=== PATIENT | male | born 1945 | race Caucasian/White ===

== ENCOUNTER 2016-12-16 19:23 | Emergency (ER) | payer MEDICARE ==
[2016-12-16 19:34] VITALS: BP 139/92; PULSE 84; RESP 18; TEMP 98.5
--- NOTE | 2016-12-16 20:17 | ED ---
Wound/Laceration HPI - General Chief Complaint: Wound/Laceration Stated Complaint: fall,head injury Time Seen by Provider: 12/16/16 19:31 Source: patient, RN notes reviewed Mode of arrival: ambulatory Limitations: no limitations - History of Present Illness Initial Comments: Patient is a 71-year-old male presents to the emergency room for evaluation fall injury. Patient states he tripped over a step and fell head first into the door. Patient states he sustained a laceration on the top of his head. Patient denies loss of consciousness. Patient denies neck pain, nausea, changes in vision. Patient denies numbness or tingling in extremities. Patient states he also landed on his left knee. Patient states he has an abrasion over his knee along with pain every time he bends his left knee. Patient denies taking blood thinners. Patient states he is up-to-date on his tetanus vaccine. Patient denies any other injuries during incident. - Related Data Allergies Allergy/AdvReac Type Severity Reaction Status Date / Time tape Allergy Rash/Hives Uncoded 12/16/16 19:34 Review of Systems ROS Statement: Those systems with pertinent positive or pertinent negative responses have been documented in the HPI. ROS Other: All systems not noted in ROS Statement are negative. Past Medical History Past Medical History: Diabetes Mellitus, Thyroid Disorder Additional Past Medical History / Comment(s): sleep apnea, back pain History of Any Multi-Drug Resistant Organisms: None Reported Past Surgical History: Appendectomy Additional Past Surgical History / Comment(s): thyroidectomy Past Psychological History: No Psychological Hx Reported Smoking Status: Never smoker Past Alcohol Use History: None Reported Past Drug Use History: None Reported General Exam - General Exam Comments Initial Comments: Sitting in exam room, no acute distress. Limitations: no limitations General appearance: alert, in no apparent distress Expanded Head exam: Present: laceration (2 inch lac over mid parietal/frontal scalp ), hematoma (beneath laceration ) Eye exam: Present: normal appearance, PERRL, EOMI Pupils: Present: normal accommodation ENT exam: Present: normal exam Neck exam: Present: normal inspection, full ROM. Absent: tenderness, lymphadenopathy Respiratory exam: Present: normal lung sounds bilaterally. Absent: respiratory distress Cardiovascular Exam: Present: regular rate, normal rhythm, normal heart sounds Left Upper Leg exam: Present: normal inspection Knee exam: Present: full ROM, tenderness (Lateral knee joint), abrasion ( anterior patella ). Absent: normal inspection Lower Leg exam: Present: normal inspection Ankle exam: Present: normal inspection Foot/Toe exam: Present: normal inspection Neurovascular tendon exam: Absent: pulse deficit (2+ dorsal pedal and posterior tibial pulses), abnormal cap refill (Capillary refill less than 2 seconds) Back exam: Present: normal inspection Neurological exam: Present: alert, oriented X3, CN II-XII intact Expanded Patient oriented to: Present: person, place, time Speech: Present: fluid speech Cranial nerves: EOM's Intact: Normal, Facial Sensation: Normal Sensory exam: Upper Extremity Light Touch: Normal, Lower Extremity Light Touch: Normal Motor strength exam: RUE: 5, LUE: 5, RLE: 5, LLE: 5 Eye Response: (4) open spontaneously Motor Response: (6) obeys commands Verbal Response: (5) oriented Psychiatric exam: Present: normal affect, normal mood Skin exam: Present: warm, dry. Absent: rash Course Vital Signs 12/16/16 19:29 Temperature 98.5 F Pulse Rate 84 Respiratory 18 Rate Blood Pressure 139/92 O2 Sat by Pulse 97 Oximetry Procedures - Laceration Laceration #1 Consent Obtained: verbal consent Indication: laceration Site: scalp Size (cm): 5 Description: linear Depth: simple, single layer Anesthetic Used: lidocaine 1% Anesthesia Technique: local infiltration Amount (mls): 4 Pre-repair: wound explored Type of Sutures: other (jeff) Number of Sutures: 4 Patient Tolerated Procedure: well, no complications Medical Decision Making - Medical Decision Making Patient is a 71-year-old male presents to the emergency room for evaluation of fall injury. Scalp laceration repaired with jeff. Brain CT shows no acute findings. Left knee x-ray shows no acute findings. Advised patient to follow- up with his primary care provider for reevaluation. Patient states he understands everything that was discussed with him. Patient has no neuro deficits. Case discussed with Dr. Thakkar. Return parameters discussed. - Radiology Data Radiology results: report reviewed, image reviewed Disposition Clinical Impression: Fall, Scalp laceration, Abrasion of left knee Disposition: HOME SELF-CARE Condition: Good Instructions: Laceration (ED), Abrasion (ED), Staple Care (ED), Fall Prevention for Older Adults (ED) Additional Instructions: Keep staple area clean and dry. Please return in 12-14 days for staple removal. Take Tylenol or Motrin as needed for pain. Keep left knee clean and dry. Wash with warm water and soap. Apply triple antibiotic ointment and a bandage over abrasion area. Please follow up with primary care provider in 24- 48 hours for reevaluation. If any new symptom arises or symptoms worsen, return to ER as soon as possible. Referrals: Talat Baum MD [Primary Care Provider] - 1-2 days Time of Disposition: 21:19
--- NOTE | 2016-12-16 21:18 | CT ---
EXAMINATION TYPE: CT brain wo con DATE OF EXAM: 12/16/2016 8:51 PM COMPARISON: NONE HISTORY: Fall today. Injury to top of head. CT DLP: 1257.00 mGycm Automated exposure control for dose reduction was used. FINDINGS: There is cerebral cortical atrophy. There is no mass effect nor midline shift. There is no sign of in tracranial hemorrhage. Calvarium is intact. There is some mucosal thickening in the maxillary sinuses . IMPRESSION: Cerebral atrophy. Maxillary sinusitis. No acute intracranial abnormality.
[2016-12-16] MEDS ORDERED: IBUPROFEN 600 MG TAB PO STA (21:19)
--- NOTE | 2016-12-16 21:20 | XR ---
EXAMINATION TYPE: XR knee complete LT DATE OF EXAM: 12/16/2016 8:57 PM COMPARISON: NONE HISTORY: Knee pain TECHNIQUE: 3 views FINDINGS: I see no fracture nor dislocation. Joint spaces are fairly normal. There is no sign of knee joint effusion. IMPRESSION: Negative left knee exam.
== END 2016-12-16 21:50 | disposition home or self-care (01) ==
LOC: EC 19:23
DX: S01.01XA Laceration without foreign body of scalp, initial encounter (principal); S80.212A Abrasion, left knee, initial encounter; Z91.048 Other nonmedicinal substance allergy status; W01.0XXA Fall on same level from slipping, tripping and stumbling without subsequent striking against object, initial encounter; Y92.098 Other place in other non-institutional residence as the place of occurrence of the external cause
CPT/HCPCS: 12002; 70450; 99283

== ENCOUNTER → 2017-04-23 | Outpatient (CLI) | payer MEDICARE ==
--- NOTE | 2017-04-23 12:54 | CONS ---
DATE OF CONSULTATION: 04/23/2017 CONSULTATION/NEW PATIENT EVALUATION A 71-year-old gentleman had been evaluated in the sleep center for obstructive sleep apnea. HISTORY OF PRESENT ILLNESS/SLEEP-WAKE EVALUATION: SLEEP SCHEDULE: Patient's sleep schedule from around 12 to 1:30 a.m. until 9 a.m. Patient is a retired. FALLING ASLEEP: No problem with falling asleep. No TV in bedroom. DURING SLEEP: He usually sleeps on the side position. He snores, has episodes of stopped breathing during the sleep. He had been diagnosed with obstructive sleep apnea more than 30 years ago. Last sleep study done about 10 years ago. The patient was treated with CPAP. Now his CPAP has some problems. [place] Sleepiness Scale increased to 10. PAST MEDICAL HISTORY: Positive for hypertension, hypothyroidism secondary to thyroidectomy, diabetes mellitus. PAST SURGICAL HISTORY: Appendectomy, tonsillectomy, thyroidectomy done for possible CA, but then CA was not found. MEDICATIONS: ( ) 10 mg 2 times a day, lisinopril, levothyroxine, metformin. SOCIAL HISTORY: Patient quit smoking in 1977. Alcohol Consumption: None. REVIEW OF SYSTEMS: Sometimes awakenings from sleep, sleepiness during the day. No fevers. No double vision. No recent chest pain. No shortness of breath. No abdominal pain. No bleeding episodes. No blood in urine. No seizure episodes. FAMILY HISTORY: Hypertension, arthritis, sinus headaches, snoring, diabetes, thyroid problems. PHYSICAL EXAMINATION: During his physical exam, a 71-year-old gentleman without distress. VITAL SIGNS: BP 116/64, HR 90, RR 16, height 5 feet 9 inches, weight 232.0, BMI 34.2. Neck 18 inches in circumference. Temperature 97.2. Oxygen saturation at room air 95%. HEENT: PERRLA, EOMI. Evaluation of oropharynx extremely low position of soft palate. Slight restriction of nasal breathing. NECK: Supple. No JVD. Thyroid is not palpable. LUNGS: Clear to percussion and to auscultation. Good air exchange. No wheezing or rhonchi. HEART: S1, S2 regular. No murmurs, gallops or rubs. ABDOMEN: Obese. EXTREMITIES: No clubbing or cyanosis. 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 Cranial nerves 2 to 7 intact. There is no fasciculation or atrophy noted. No focal deficits observed. IMPRESSION: 1. Obstructive sleep apnea-hypopnea syndrome. 2. Obesity. 3. Hypertension. 4. Status post thyroidectomy. 5. Hypothyroidism on levothyroxine replacement. 6. Diabetes mellitus. 7. Status post appendectomy. 8. Status post tonsillectomy. PLAN: 1. Polysomnography for evaluation of patient's breathing during sleep. 2. CPAP/BiPAP titration if sleep study confirms obstructive sleep apnea-hypopnea syndrome. 3. Preferable position during sleep on the side. 4. No driving if patient feels any sleepiness. Patient is aware of civil and criminal liability for unsafe driving. 5. I will see patient for follow-up visit to explain results of the testing and following plan. Thank you very much for referring this patient for consultation. Sincerely, Sanjay Kirkland MD, PhD, FAASM. Diplomat of [place] [employer], Sleep Medicine Board by [place] [employer] [place] [employer] Road Consultant [facility] [place]
== END ==
LOC: SLEEP 10:59
PROVIDERS: ATTEND Internal Medicine
DX: G47.33 Obstructive sleep apnea (adult) (pediatric) (principal); E66.9 Obesity, unspecified; I10 Essential (primary) hypertension; E11.9 Type 2 diabetes mellitus without complications; Z90.89 Acquired absence of other organs; Z79.899 Other long term (current) drug therapy
CPT/HCPCS: 99211

== ENCOUNTER → 2017-07-23 | Outpatient (CLI) | payer MEDICARE ==
--- NOTE | 2017-07-23 19:50 | PN ---
PROGRESS NOTE DATE OF SERVICE: 07/23/2017 This patient is a 71-year-old gentleman who has been followed in the sleep center for treatment of obstructive sleep apnea-hypopnea syndrome. Recently the patient had a polysomnogram and CPAP titration, and I discussed results of the sleep studies with the patient and his family in detail. At present he is on treatment with CPAP with a pressure of 10 cm of water. I checked the CPAP unit. Patient demonstrated 100% compliance with treatment, 30 out of 30 nights for more than 4 hours; average 7.5 hours. Apnea-hypopnea index reading from the machine is 11.8 for the last month. The patient continues to have some symptoms of excessive daytime sleepiness. 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 [place] Sleepiness Scale today is 9. MEDICATIONS: 1. Lisinopril. 2. Levothyroxine. 3. Metformin. 4. Methylphenidate. PHYSICAL EXAM: Patient is in no distress. VITAL SIGNS: BP 111/65, HR 86, RR 16, weight 233, temperature 97.7, oxygen saturation at room air 95%. HEENT: PERRLA, EOMI. Evaluation of oropharynx showed tongue protrudes midline; extremely low position of soft palate. NECK: Supple. No JVD. Thyroid is not palpable. LUNGS: Clear to percussion and to auscultation. Good air exchange. No wheezing or rhonchi. HEART: S1, S2 with some irregularities. Slight systolic murmur. ABDOMEN: Obese. EXTREMITIES: No clubbing or cyanosis. MANAGEMENT SERVICES TECHNICIAN: Awake, alert and oriented x3. Cranial nerves 2 to 7 intact. There is no fasciculation or atrophy noted. No focal deficits observed. IMPRESSION: 1. Severe obstructive sleep apnea-hypopnea syndrome; apnea-hypopnea index 82.2 with oxygen desaturation to 83.8%. The patient demonstrated 100% compliance with treatment, benefitting from treatment, but still with mild abnormalities of respiration while using the machine. 2. Obesity. 3. Hypertension. 4. Status post thyroidectomy. 5. Hypothyroidism, on levothyroxine. 6. Diabetes mellitus. 7. Status post appendectomy. 8. Status post tonsillectomy. PLAN: 1. I adjusted the CPAP unit to the automatic range of pressure between 7 and 13 cm of water. 2. Patient should continue to use CPAP equipment every night for the whole night. 3. Losing weight. 4. Sleep hygiene with regular time in bed for at least 8 hours. 5. I will see patient for follow-up visit in 2 months to check his response to changing of the pressure in the machine. 6. If patient continues to have sleepiness in the future after his respirations are under full control, we will consider proceeding with multiple sleep latency test for objective evaluation of his alertness during the day and to check for possibility of narcolepsy. Thank you very much for allowing me to participate in the management of your patient. Sincerely, Sanjay Kirkland MD, PhD, FAASM Diplomat of [place] [employer] [place] [employer] Steam Boiler Fireman [facility] [place] MMODL / JOSE: [id number] /
== END | disposition home or self-care (01) ==
LOC: SLEEP 13:11
PROVIDERS: ATTEND Internal Medicine
DX: G47.33 Obstructive sleep apnea (adult) (pediatric) (principal); E66.9 Obesity, unspecified; I10 Essential (primary) hypertension; E03.9 Hypothyroidism, unspecified; E11.9 Type 2 diabetes mellitus without complications; Z98.890 Other specified postprocedural states; Z79.899 Other long term (current) drug therapy

== ENCOUNTER 2017-09-21 21:32 | Emergency (ER) | payer MEDICARE ==
--- NOTE | 2017-09-21 21:43 | ED ---
General Adult HPI - General Stated complaint: Dizzy/Vomiting Time Seen by Provider: 09/21/17 21:42 Source: RN notes reviewed, old records reviewed - History of Present Illness Initial comments: this is a 71-year-old male to the ER for evaluation of dizziness. Lightheadedness near syncopal event. Patient was going through a period of sitting to standing and became very lightheaded dizzy with the room spinning around. At this point patient states symptoms are much improved. No nausea no vomiting. No prior history of similar issues. Patient does have diabetes, otherwise no history of stroke. No chest pain or shortness of breath. We'll currently is not spitting a patient was able to ambulate without difficulty - Related Data Home Medications Medication Instructions Recorded Confirmed Cholecalciferol [Vitamin D3] 2,000 unit PO DAILY 09/21/17 09/21/17 Levothyroxine Sodium [Synthroid] 150 mcg PO DAILY 09/21/17 09/21/17 Lisinopril [Zestril] 5 mg PO DAILY 09/21/17 09/21/17 Multivitamins, Thera [Multivitamin 1 tab PO DAILY 09/21/17 09/21/17 (formulary)] metFORMIN HCL [Glucophage] 500 mg PO QID 09/21/17 09/21/17 Allergies Allergy/AdvReac Type Severity Reaction Status Date / Time tape Allergy Rash/Hives Uncoded 12/16/16 19:34 Review of Systems ROS Statement: Those systems with pertinent positive or pertinent negative responses have been documented in the HPI. ROS Other: All systems not noted in ROS Statement are negative. Past Medical History Past Medical History: Diabetes Mellitus, Thyroid Disorder Additional Past Medical History / Comment(s): sleep apnea, back pain History of Any Multi-Drug Resistant Organisms: None Reported Past Surgical History: Appendectomy Additional Past Surgical History / Comment(s): thyroidectomy Past Psychological History: No Psychological Hx Reported Smoking Status: Never smoker Past Alcohol Use History: None Reported Past Drug Use History: None Reported General Exam - General Exam Comments Initial Comments: nystagmus to the right, heel benton and finger-nose are negative General appearance: alert, in no apparent distress Head exam: Present: atraumatic, normocephalic, normal inspection Eye exam: Present: normal appearance, PERRL, EOMI. Absent: scleral icterus, conjunctival injection, periorbital swelling ENT exam: Present: normal exam, mucous membranes moist Neck exam: Present: normal inspection. Absent: tenderness, meningismus, lymphadenopathy Respiratory exam: Present: normal lung sounds bilaterally. Absent: respiratory distress, wheezes, rales, rhonchi, stridor Cardiovascular Exam: Present: regular rate, normal rhythm, normal heart sounds. Absent: systolic murmur, diastolic murmur, rubs, gallop, clicks GI/Abdominal exam: Present: soft, normal bowel sounds. Absent: distended, tenderness, guarding, rebound, rigid Extremities exam: Present: normal inspection, full ROM, normal capillary refill. Absent: tenderness, pedal edema, joint swelling, calf tenderness Back exam: Present: normal inspection Neurological exam: Present: alert, oriented X3, CN II-XII intact Psychiatric exam: Present: normal affect, normal mood Skin exam: Present: warm, dry, intact, normal color. Absent: rash Course Vital Signs 09/21/17 09/21/17 09/22/17 22:05 23:55 00:50 Temperature 97.3 F L 97.8 F Pulse Rate 67 83 75 Respiratory 18 18 18 Rate Blood Pressure 146/78 137/82 146/65 O2 Sat by Pulse 99 99 100 Oximetry - Reevaluation(s) Reevaluation #1: Patient is able to ambulate without difficulty, no dizziness no ataxia EKG Findings - EKG Comments: EKG Findings:: EKG shows normal sinus rhythm rate of 67, VA 154, QRS 86, QTc 409 Medical Decision Making - Medical Decision Making 71 male the ER for evaluation of dizziness. Patient episodic event of dizziness with room spinning as he had a change of position earlier today. He is asymptomatic at this point no headache no chest pain or shortness of breath no abdominal pain. History of CVA. Patient's able to ambulate without ataxia can be discharged - Lab Data Result diagrams: 09/21/17 22:40 09/21/17 22:40 Lab Results 09/21/17 09/21/17 09/21/17 Range/Units 22:40 22:40 22:40 WBC 15.5 H (3.8-10.6) k/uL RBC 5.39 (4.30-5.90) m/uL Hgb 16.0 (13.0-17.5) gm/dL Hct 49.2 (39.0-53.0) % MCV 91.3 (80.0-100.0) fL MCH 29.7 (25.0-35.0) pg MCHC 32.6 (31.0-37.0) g/dL RDW 13.3 (11.5-15.5) % Plt Count 242 (150-450) k/uL Neutrophils % 83 % Lymphocytes % 10 % Monocytes % 3 % Eosinophils % 2 % Basophils % 1 % Neutrophils # 12.8 H (1.3-7.7) k/uL Lymphocytes # 1.6 (1.0-4.8) k/uL Monocytes # 0.5 (0-1.0) k/uL Eosinophils # 0.3 (0-0.7) k/uL Basophils # 0.1 (0-0.2) k/uL PT (9.0-12.0) sec INR (<1.2) APTT (22.0-30.0) sec Sodium 141 (137-145) mmol/L Potassium 4.7 (3.5-5.1) mmol/L Chloride 106 (98-107) mmol/L Carbon Dioxide 22 (22-30) mmol/L Anion Gap 13 mmol/L BUN 20 (9-20) mg/dL Creatinine 1.10 (0.66-1.25) mg/dL Est GFR (MDRD) Af Amer >60 (>60 ml/min/1.73 sqM) Est GFR (MDRD) Non-Af >60 (>60 ml/min/1.73 sqM) Glucose 165 H (74-99) mg/dL Calcium 9.7 (8.4-10.2) mg/dL Phosphorus 3.4 (2.5-4.5) mg/dL Magnesium 2.0 (1.6-2.3) mg/dL Total Bilirubin 0.9 (0.2-1.3) mg/dL AST 27 (17-59) U/L ALT 45 (21-72) U/L Alkaline Phosphatase 103 (38-126) U/L Total Creatine Kinase 148 (55-170) U/L CK-MB (CK-2) 1.9 (0.0-2.4) ng/mL CK-MB (CK-2) Rel Index 1.3 Troponin I <0.012 (0.000-0.034) ng/mL Total Protein 7.5 (6.3-8.2) g/dL Albumin 4.1 (3.5-5.0) g/dL 09/21/17 Range/Units 22:40 WBC (3.8-10.6) k/uL RBC (4.30-5.90) m/uL Hgb (13.0-17.5) gm/dL Hct (39.0-53.0) % MCV (80.0-100.0) fL MCH (25.0-35.0) pg MCHC (31.0-37.0) g/dL RDW (11.5-15.5) % Plt Count (150-450) k/uL Neutrophils % % Lymphocytes % % Monocytes % % Eosinophils % % Basophils % % Neutrophils # (1.3-7.7) k/uL Lymphocytes # (1.0-4.8) k/uL Monocytes # (0-1.0) k/uL Eosinophils # (0-0.7) k/uL Basophils # (0-0.2) k/uL PT 11.0 (9.0-12.0) sec INR 1.1 (<1.2) APTT 19.6 L (22.0-30.0) sec Sodium (137-145) mmol/L Potassium (3.5-5.1) mmol/L Chloride (98-107) mmol/L Carbon Dioxide (22-30) mmol/L Anion Gap mmol/L BUN (9-20) mg/dL Creatinine (0.66-1.25) mg/dL Est GFR (MDRD) Af Amer (>60 ml/min/1.73 sqM) Est GFR (MDRD) Non-Af (>60 ml/min/1.73 sqM) Glucose (74-99) mg/dL Calcium (8.4-10.2) mg/dL Phosphorus (2.5-4.5) mg/dL Magnesium (1.6-2.3) mg/dL Total Bilirubin (0.2-1.3) mg/dL AST (17-59) U/L ALT (21-72) U/L Alkaline Phosphatase (38-126) U/L Total Creatine Kinase (55-170) U/L CK-MB (CK-2) (0.0-2.4) ng/mL CK-MB (CK-2) Rel Index Troponin I (0.000-0.034) ng/mL Total Protein (6.3-8.2) g/dL Albumin (3.5-5.0) g/dL - Radiology Data Radiology results: report reviewed (CT brain is negative for acute disease), image reviewed Disposition Clinical Impression: Benign paroxysmal positional vertigo Disposition: HOME SELF-CARE Condition: Good Instructions: Vertigo (ED), Benign Paroxysmal Positional Vertigo (ED) Referrals: Talat Baum MD [Primary Care Provider] - 1-2 days
[2017-09-21 22:09] VITALS: RESP 18
[2017-09-21] MEDS ORDERED: ONDANSETRON 4 MG/2 ML VIAL IVP STA (22:17)
[2017-09-21] MEDS ORDERED: SODIUM CHLORIDE 0.9% 1,000 ML IV STA (22:17)
[2017-09-21 22:52] LABS: Basophils # (A) 0.1 k/uL (0-0.2); Basophils % (A) 1 %; CH 30.4; CHCM 33.4; Eosinophils # (A) 0.3 k/uL (0-0.7); Eosinophils % (A) 2 %; HCT 49.2 % (39.0-53.0); HDW 2.47; Luc % (Auto) 1; Lymphocytes # (A) 1.6 k/uL (1.0-4.8); Lymphocytes % (A) 10 %; MCH 29.7 pg (25.0-35.0); MCHC 32.6 g/dL (31.0-37.0); MCV 91.3 fL (80.0-100.0); Mean Platelet Volume 7.6; Monocytes # (A) 0.5 k/uL (0-1.0); Monocytes % (A) 3 %; Neutrophils # (A) 12.8 k/uL (1.3-7.7); Neutrophils % (A) 83 %; RBC 5.39 m/uL (4.30-5.90); RDW 13.3 % (11.5-15.5); WBC 15.5 k/uL (3.8-10.6); WBC (Perox) 14.33
[2017-09-21 23:04] LABS: ALT 45 U/L (21-72); AST 27 U/L (17-59); Alkaline Phosphatase 103 U/L (38-126); Anion Gap 13 mmol/L; Blood Urea Nitrogen 20 mg/dL (9-20); Calcium 9.7 mg/dL (8.4-10.2); Carbon Dioxide 22 mmol/L (22-30); Chloride 106 mmol/L (98-107); Glucose 165 mg/dL (74-99); Non-African American GFR(MDRD) >60 (>60 ml/min/1.73 sqM); Phosphorus 3.4 mg/dL (2.5-4.5); Potassium 4.7 mmol/L (3.5-5.1); Sodium 141 mmol/L (137-145); Total Bilirubin 0.9 mg/dL (0.2-1.3); Total Protein 7.5 g/dL (6.3-8.2)
[2017-09-21 23:06] LABS: INR 1.1 (<1.2)
[2017-09-21 23:10] LABS: Partial Thromboplastin Time 19.6 sec (22.0-30.0)
[2017-09-21 23:12] LABS: Creatine Kinase 148 U/L (55-170)
[2017-09-21 23:25] LABS: Creatine Kinase MB 1.9 ng/mL (0.0-2.4); Troponin I <0.012 ng/mL (0.000-0.034)
--- NOTE | 2017-09-21 23:43 | CT ---
EXAMINATION TYPE: CT brain wo con DATE OF EXAM: 09/21/2017 COMPARISON: 12/16/2016 HISTORY: dizziness nausea CT DLP: 1016.90 mGycm Automated exposure control for dose reduction was used. FINDINGS: Multiple axial sections were obtained of the brain without contrast. THERE IS CEREBRAL CORTICAL ATROPHY. THERE IS NO MASS EFFECT NOR MIDLINE SHIFT. THERE IS NO SIGN OF IN TRACRANIAL HEMORRHAGE. THE CALVARIUM IS INTACT. CONCLUSION: CEREBRAL ATROPHY. NO ACUTE INTRACRANIAL ABNORMALITY. NO CHANGE COMPARED TO OLD EXAM.
[2017-09-22 00:51] VITALS: BP 146/65; PULSE 75
[2017-09-22 00:52] VITALS: TEMP 97.8
== END 2017-09-21 23:55 | disposition home or self-care (01) ==
LOC: EC 21:32
DX: H81.10 Benign paroxysmal vertigo, unspecified ear (principal); E11.9 Type 2 diabetes mellitus without complications; E07.9 Disorder of thyroid, unspecified; Z79.84 Long term (current) use of oral hypoglycemic drugs; Z79.899 Other long term (current) drug therapy; Z91.048 Other nonmedicinal substance allergy status
CPT/HCPCS: 36415; 93005; 80053; 82550; 82553; 83735; 84100; 84484; 85025; 85610; 85730; 70450; 99285; 96374; 96361; J2405

== ENCOUNTER → 2017-09-24 | Outpatient (CLI) | payer MEDICARE ==
--- NOTE | 2017-09-24 15:04 | PN ---
PROGRESS NOTE DATE OF SERVICE: 09/24/2017 71-year-old gentleman has been followed in Sleep Center for treatment of obstructive sleep apnea-hypopnea syndrome. During the previous visit on 07/23/2017 CPAP pressure was 10 cm of water. At that pressure apnea-hypopnea index was slightly increased to 11.8. I just at the CPAP unit to the range of pressure 7 up to 13 cm of water. Today patient return back and according to him, he sleeps better with the machine after pressure was changed. I checked his CPAP unit. Average pressure is 12.8 cm of water. Apnea-hypopnea index is only 2.6, which is totally perfect. [place] Sleepiness Scale today is 7. MEDICATIONS: Lisinopril, levothyroxine, metformin. PHYSICAL EXAM: Patient in no distress. BP 132/72, HR 84, RR 16, height 5 feet 9 inches, weight 231, BMI 34.1, temperature 97.9, oxygen saturation on room air 96%. HEENT: PERRLA, EOMI, evaluation of oropharynx showed extremely low position of soft palate. NECK: Supple, no JVD. Thyroid is not palpable. LUNGS: Clear to percussion and to auscultation. Good air exchange. No wheezing or rhonchi. HEART: S1, S2 regular. No murmurs, gallops, or rubs. ABDOMEN: Obese. Soft and nontender. Bowel sounds are present. No organomegaly appreciated. EXTREMITIES: No clubbing or cyanosis. 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 Cranial nerves 2 to 7 intact. There is no fasciculation or atrophy. noted. No focal deficits observed. IMPRESSION: 1. Obstructive sleep apnea-hypopnea syndrome on full control with CPAP. The patient demonstrated 100% compliance with treatment benefitting from treatment. 2. Obesity. 3. Hypertension. 4. Hypothyroidism. 5. Diabetes mellitus. 6. Status post appendectomy. 7. Status post tonsillectomy. PLAN: 1. Continue treatment with CPAP every night for the whole night. 2. Losing weight. 3. No driving if feeling sleepiness. 4. Followup visit in about 1 year or earlier if patient has any problems. Sanjay Kirkland MD, PhD, FAASM Diplomat of [place] [employer] [place] [employer] Harmonic Analyst [facility] [place] MMODL / IJN: [id number] /
== END ==
LOC: SLEEP 13:40
PROVIDERS: ATTEND Internal Medicine
DX: G47.33 Obstructive sleep apnea (adult) (pediatric) (principal); E66.9 Obesity, unspecified; E03.9 Hypothyroidism, unspecified; E11.9 Type 2 diabetes mellitus without complications; I10 Essential (primary) hypertension; Z90.89 Acquired absence of other organs; Z79.899 Other long term (current) drug therapy; Z79.84 Long term (current) use of oral hypoglycemic drugs

== ENCOUNTER 2018-06-07 06:53 | Day surgery (SDC) | payer MEDICARE ==
[2018-06-02 12:44] VITALS: BMI 33.1
[~2018-06-07 06:53] MED LIST: LACTATED RINGERS 1,000 ML IV ONE; LACTATED RINGERS 1,000 ML IV SCH; LIDOCAINE 1% 20 ML VIAL (10MG/ML) FOR IV START INTRADERMA PRN
[2018-06-07 07:18] VITALS: RESP 16; TEMP 98.1
[2018-06-07 07:40] LABS: Glucose,Whole Blood 125 mg/dL (75-99)
[2018-06-07] MEDS ORDERED: PROPOFOL 10 MG/ML 20 ML VIAL IV ONE (07:56)
[2018-06-07] MEDS ORDERED: fentaNYL (PF) 50 MCG/ML 2 ML AMP ONE (07:56)
[2018-06-07] MEDS ORDERED: MIDAZOLAM 2 MG/2 ML VIAL ONE (07:56)
--- NOTE | 2018-06-07 07:59 | P.GSHP ---
History of Present Illness H&P Date: 06/07/18 Chief Complaint: Blood in stool Cyst 72-year-old male who presents today for colonoscopy. Patient's had issues with rectal bleeding. He presents today for colonoscopy. Patient states he sees blood when he wipes himself. Past Medical History Past Medical History: Asthma, Diabetes Mellitus, Hypertension, Sleep Apnea/CPAP/ BIPAP, Thyroid Disorder Additional Past Medical History / Comment(s): USES CPAP. DDD. HX VERTIGO. POS COLOGARD TEST. History of Any Multi-Drug Resistant Organisms: None Reported Past Surgical History: Appendectomy Additional Past Surgical History / Comment(s): PARTIAL Thyroidectomy. CIRCUMCISION. Past Anesthesia/Blood Transfusion Reactions: No Reported Reaction, Unable to Obtain Additional Past Anesthesia/Blood Transfusion Reaction / Comment(s): ADOPTED, NO KNOWN FAM HX. Smoking Status: Former smoker - Past Family History Mother Family Medical History: Unable to Obtain Medications and Allergies Home Medications Medication Instructions Recorded Confirmed Type Cholecalciferol [Vitamin D3] 2,000 unit PO DAILY 09/21/17 06/07/18 History Levothyroxine Sodium [Synthroid] 150 mcg PO DAILY 09/21/17 06/07/18 History Lisinopril [Zestril] 5 mg PO DAILY 09/21/17 06/07/18 History metFORMIN HCL [Glucophage] 500 mg PO QID 09/21/17 06/07/18 History Ibuprofen [Motrin] 600 mg PO Q8HR PRN 06/02/18 06/07/18 History Methylphenidate HCl [Ritalin] 10 mg PO BID 06/02/18 06/07/18 History sitaGLIPtin PHOSPHATE [Januvia] 100 mg PO DAILY 06/02/18 06/07/18 History Allergies Allergy/AdvReac Type Severity Reaction Status Date / Time adhesive tape Allergy Rash/Hives Verified 06/07/18 07:22 Surgical - Exam Vital Signs Temp Pulse Resp BP Pulse Ox 98.1 F 74 16 102/65 95 06/07/18 07:17 06/07/18 07:17 06/07/18 07:17 06/07/18 07:17 06/07/18 07:17 - General well developed, no distress - Eyes PERRL - ENT normal pinna - Neck no masses - Respiratory normal expansion - Cardiovascular Rhythm: regular - Abdomen Abdomen: soft, non tender Results - Labs Abnormal Lab Results - Last 24 Hours (Table) 06/07/18 Range/Units 07:19 POC Glucose (mg/dL) 125 H (75-99) mg/dL Assessment and Plan Assessment: GI bleed. We'll perform colonoscopy.
--- NOTE | 2018-06-07 08:12 | P.OP ---
Date of Procedure: 06/07/18 Preoperative Diagnosis: GI bleed Postoperative Diagnosis: Internal hemorrhoids Diverticulosis Rectal polyp Procedure(s) Performed: Colonoscopy Anesthesia: MAC Surgeon: Brandon Gonzáles Pathology: other (Rectal polyp) Condition: stable Disposition: PACU Description of Procedure: The patient's placed on the endoscopy table in the lateral position. He received IV sedation. Digital rectal exam was performed which revealed mild internal hemorrhoids. Prostate was symmetric without nodules. The flexible colonoscope was then placed patient anus passed throughout the entire colon. The ileocecal valve was visualized. The cecum, ascending and transverse colon appeared normal. In the descending and sigmoid colon there was moderate diverticular changes. The scope was then brought back the rectum and a polyp was seen in this is removed with the snare. The scope was then withdrawn from the patient.
[2018-06-07 08:50] VITALS: BP 123/67; PULSE 71
[2018-06-07 09:21] LABS: Glucose,Whole Blood 120 mg/dL (75-99)
== END 2018-06-07 09:15 | disposition home or self-care (01) ==
LOC: ORWHC2ENDO 06:53
PROVIDERS: ATTEND Surgery
DX: K62.1 Rectal polyp (principal); K57.30 Diverticulosis of large intestine without perforation or abscess without bleeding; K62.5 Hemorrhage of anus and rectum; G47.33 Obstructive sleep apnea (adult) (pediatric); K64.8 Other hemorrhoids; E89.0 Postprocedural hypothyroidism; J45.909 Unspecified asthma, uncomplicated; I10 Essential (primary) hypertension; E11.9 Type 2 diabetes mellitus without complications; Z99.89 Dependence on other enabling machines and devices; Z87.891 Personal history of nicotine dependence; Z79.84 Long term (current) use of oral hypoglycemic drugs; Z79.899 Other long term (current) drug therapy; Z91.048 Other nonmedicinal substance allergy status; G47.419 Narcolepsy without cataplexy
CPT/HCPCS: 88305; 45385; J2250; J3010; J2704

== ENCOUNTER → 2018-08-26 | Outpatient (CLI) | payer MEDICARE ==
--- NOTE | 2018-08-26 15:15 | SFUN ---
SLEEP CENTER FOLLOW UP NOTE DATE OF SERVICE: 08/26/2018 A 72-year-old gentleman who has been followed in Sleep Center for treatment of obstructive sleep apnea-hypopnea syndrome. Patient continued to use his CPAP equipment every night, but sometimes has snoring with the machine and continued to have symptoms of excessive daytime sleepiness. He also started to go to bed later and sleep longer hours and get up from bed also late. His sleep schedule from around 1-114 at midnight 1 and gets out of bed. He sleeps up to me in 2 or 2 up to 2 cm. [place] Sleepiness Scale significantly increased to 15. Previously, patient was evaluated at [facility] many years ago and has been told about possible borderline results for narcolepsy. Presently, he is on treatment with methylplenidate 2 times a day. He takes the first tablet when he wakes up around 2 pm but second tablet he has taken around 8 pm. MEDICATIONS: Lisinopril, levothyroxine, metformin. PHYSICAL EXAM: Patient in no distress. BP 94/54, HR 89, RR 16, height, 5 feo8-1/2 inches, weight 223.6, body mass index 33.4, temperature 97.9 oxygen saturation room air 95% oropharynx extremely low position of soft palate. ABDOMEN: Obese under physical exam normal just full my template. I checked the patient. The CPAP unit. Usage is 100% of the time more than 4 hours. Average usage is 10 hours. Pressure in the range of 7-13 cm of water. 95% till pressure is 12.4. Leak is 47 L/minute. Apnea-hypopnea index 7.5. IMPRESSION: 1. Obstructive sleep apnea-hypopnea syndrome. The patient demonstrated 100% compliance with treatment, benefitting from treatment, but recently developed snoring while using his CPAP machine and has symptoms of significant excessive daytime sleepiness. [place] Sleepiness Scale increased to 15 in the borderline results for narcolepsy in another institution according to patient in the past. 2. Sleep delay. Patient goes to bed at midnight and gets out of bed afternoon, sleep many hours. 3. Obesity. 4. Hypertension. 5. Hypothyroidism. 6. Diabetes mellitus. 7. Status post appendectomy. 8. Status post tonsillectomy. PLAN: 1. Polysomnogram at night with the pressure of 13 cm of water. If necessary, pressure will be adjusted up and we will also check mask fitting. If necessary, he will be fitted with a different mask. 2. Follow with multiple sleep latency test for objective evaluation of patient symptoms of excessive daytime sleepiness to rule out narcolepsy. 3. Patient will stop taking his second tablet of methylphenidate at 8 p.m. and maximal sunlight exposure in the morning after awakenings with a goal to move sleep schedule earlier. He will start also taking melatonin at 8:00 pm. 4. Losing weight. 5. No driving if feeling any sleepiness. Thank you very much for allowing me to participate in the management of your patient. Sincerely, Sanjay Kirkland MD, PhD, FAASM Diplomat of [employer] Pantry Goods Worker of [facility] [place] MMROSA M / KENYETTAN: [id number] /
== END | disposition home or self-care (01) ==
LOC: SLEEP 13:42
PROVIDERS: ATTEND Internal Medicine
DX: G47.33 Obstructive sleep apnea (adult) (pediatric) (principal); E66.9 Obesity, unspecified; I10 Essential (primary) hypertension; E03.9 Hypothyroidism, unspecified; E11.9 Type 2 diabetes mellitus without complications; Z68.33 Body mass index [BMI] 33.0-33.9, adult; Z90.89 Acquired absence of other organs; Z99.89 Dependence on other enabling machines and devices; Z79.899 Other long term (current) drug therapy; Z79.84 Long term (current) use of oral hypoglycemic drugs

== ENCOUNTER → 2018-11-11 | Outpatient (CLI) | payer MEDICARE ==
--- NOTE | 2018-11-11 16:00 | PN ---
PROGRESS NOTE DATE OF SERVICE: 11/11/2018 This patient is a 73-year-old gentleman who has been followed in Sleep Center for treatment of obstructive sleep apnea-hypopnea syndrome and significant excessive daytime sleepiness. Recently we provided a nighttime test, when patient slept on CPAP and then we followed with multiple sleep latency test on the following day. Test showed that on CPAP patient's respiration was under full control, and on the following day during the test, which included 5 naps, mean sleep latency was pathologically short at 3.9 minutes, which indicates the possibility of narcolepsy because no sleep-onset REM periods were documented. I checked the patient's CPAP unit. CPAP pressure is in the range of 7 to 14. Average pressure is 13.3. Usage is 100% of the time for more than 4 hours. Average usage is 8.9 hours. Leak is 26 L/minute, which is borderline for a full-face mask, which patient is using. Apnea-hypopnea index is 4.1, which is normal. MEDICATIONS: 1. Lisinopril. 2. Levothyroxine. 3. Metformin. 4. Methylphenidate. During the multiple sleep latency test, the patient did not take his methylphenidate. PHYSICAL EXAMINATION: GENERAL: A pleasant patient in no distress. VITAL SIGNS: BP 113/63, HR 80, RR 16, weight 229, temperature 98.0, oxygen saturation at room air 96%. HEENT: PERRLA, EOMI. Evaluation of oropharynx showed tongue protrudes midline. Extremely low position of soft palate. NECK: Supple. No JVD. Thyroid is not palpable. LUNGS: Clear to percussion and to auscultation. Good air exchange. No wheezing or rhonchi. HEART: S1, S2 regular. No murmurs, gallops or rubs. ABDOMEN: Obese. EXTREMITIES: No clubbing or cyanosis. PROJECT LEADER: Awake, alert, and oriented X3. Cranial nerves 2 to 7 intact. There is no fasciculation or atrophy. noted. No focal deficits observed. IMPRESSION: 1. Obstructive sleep apnea-hypopnea syndrome. The patient demonstrated 100% compliance with treatment, benefitting from treatment. 2. 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 3. Obesity. 4. Hypertension. 5. Hypothyroidism. 6. Diabetes mellitus. 7. Status post appendectomy. 8. Status post tonsillectomy. PLAN: 1. Patient will continue to use CPAP equipment every night for the whole night with the same regimen. 2. Losing weight. 3. Patient should continue treatment with methylphenidate for documented significant excessive daytime sleepiness which may interfere with his ability to drive. 4. Precautions related to driving. No driving if feeling any sleepiness. 5. Sleep hygiene with regular time in bed for at least 8 hours. 6. Daytime naps permitted. Thank you very much for allowing me to participate in the management of your patient. Sincerely, Sanjay Kirkland MD, PhD, FAASM Diplomat of [employer] Resident Care Director of [facility] [place] MMODL / IJN: [id number] /
== END | disposition home or self-care (01) ==
LOC: SLEEP 13:59
PROVIDERS: ATTEND Internal Medicine
DX: G47.33 Obstructive sleep apnea (adult) (pediatric) (principal); G47.419 Narcolepsy without cataplexy; E66.9 Obesity, unspecified; I10 Essential (primary) hypertension; E03.9 Hypothyroidism, unspecified; E11.9 Type 2 diabetes mellitus without complications; Z90.89 Acquired absence of other organs; Z99.89 Dependence on other enabling machines and devices; Z79.899 Other long term (current) drug therapy; Z79.84 Long term (current) use of oral hypoglycemic drugs

== ENCOUNTER → 2019-02-25 | Outpatient (CLI) | payer MEDICARE ==
--- NOTE | 2019-02-25 13:40 | MR ---
EXAMINATION TYPE: MR Prostate wo/w con DATE OF EXAM: 02/25/2019 COMPARISON: Prior outside ultrasound IMAGE QUALITY: Satisfactory. INDICATION: Elevated PSA PSA: 7.8 ng/ml Recent Biopsy and Date: 07/07/2018 Pathology Report (If Applicable): Benign prostatic parenchymal TECHNIQUE: Examination was performed using a 3T MRI without an endorectal coil. Multiparametric imaging was perf ormed with T2 mutliplanar sequences, axial diffusion weighted imaging and dynamic contrast enhanced i maging, utilizing 11 mL intravenous Gadavist gadolinium contrast. FINDINGS: There is no clinically significant cancer identified. PROSTATE VOLUME: 3.9 x 5.2 x 5.9 cm Vol= 63 cc PREDICTED PSA DENSITY: 7.56 ng/ml/cc Site 1: Assessment Category: 2 Size: 10 mm x 8 mm Location(s):right posterior lateral mid gland There are numerous well-circumscribed heterogenous central zone nodules compatible moderate degree be nign prostatic hyperplasia. Throughout the peripheral zone there are hazy wedge-shaped and linear areas of T2 hypointensity. Nash diamond there is no discrete signal abnormality on DWI and ADC map. IMPRESSION: A focus of clinically significant cancer is not identified. Highest Assessment Category: 2-clinically significant cancer is unlikely to be present Moderate findings of benign prostatic hyperplasia. There is a hypoechoic lesion of the right posterior lateral mid gland seen only on T2-weighted images that does not have corresponding suspicious features on DWI nor ADC map. However this could correspo nd to the findings seen on the prior outside ultrasound report and if there is concern ultrasound mazin ded targeted biopsy could be performed. False negative rates for MRI range from 5-20% depending on risk profile. Assessment Categories: 1 ? Very low (clinically significant cancer is highly unlikely to be present) 2 ? Low (clinically significant cancer is unlikely to be present) 3 ? Intermediate (the presence of clinically significant cancer is equivocal) 4 ? High (clinically significant cancer is likely to be present) 5 ? Very high (clinically significant cancer is highly likely to be present) Locations: PZ = peripheral zone; TZ = transition zone CZ=central zone; AFS = anterior fibromuscular stroma a=anterior half (i.e. PZa=anterior half of peripheral zone); pm= posterior medial (i.e PZpm) pl = postero-lateral (i.e. PZpl); p = posterior half (i.e. TZp) ; a = anterior half (i.e TZa or P Za) Other: N=no or no; E= equivocal; Y=yes EPE = extraprostatic extension NVB = neurovascular bundle NA = not applicable/not available
== END | disposition home or self-care (01) ==
LOC: RADMRIMAIN 11:12
PROVIDERS: ATTEND Urology
DX: N40.0 Benign prostatic hyperplasia without lower urinary tract symptoms (principal)
CPT/HCPCS: 72197; A9585

== ENCOUNTER → 2019-04-21 | Outpatient (CLI) | payer MEDICARE ==
--- NOTE | 2019-04-21 18:12 | PN ---
PROGRESS NOTE DATE OF SERVICE: 04/21/2019 73-year-old gentleman has been followed in Sleep Center for treatment of obstructive sleep apnea hypopnea syndrome and narcolepsy. Patient continued to use his CPAP equipment every night for the whole night, but still sometimes feels sleepy during the day. He is on treatment with methylphenidate 2 times a day, 5-10 mg. I checked his CPAP unit, range of CPAP pressure 7-14 cm of water. Average pressure 13.5 cm of water. Apnea-hypopnea index significantly increased during the last month. Apnea-hypopnea index 16.2, and 6 months ago index was only 4.1, leak is borderline 8 L/minute, but patient increased his weight on about 8 pounds since last visit. Usage is every night with average usage 8.9 hours, which is great compliance. MEDICATIONS: Lisinopril, levothyroxine, metformin, methylphenidate. PHYSICAL EXAM: Patient in no distress. BP 129/54, HR 76, RR 16, weight 237 pounds. Height 5 feet 8 inches, body mass index 36, O2 saturation at room air 96%. Oropharynx extremely low soft palate, Mallampati 4. Neck Supple, no JVD. Thyroid is not palpable. LUNGS Clear to percussion and to auscultation. Good air exchange. No wheezing or rhonchi. HEART S1, S2 regular. No murmurs, gallops, or rubs. ABDOMEN: Obese. Soft and nontender. Bowel sounds are present. No organomegaly appreciated. EXTREMITIES No clubbing or cyanosis. SURFACE SUPERVISOR Awake, alert, and oriented X3. Cranial nerves 2 to 7 intact. There is no fasciculation or atrophy. noted. No focal deficits observed. IMPRESSION: 1. Obstructive sleep apnea-hypopnea syndrome. Patient demonstrated 100% compliance with treatment benefitting from treatment but increasing apnea-hypopnea index comparing with the previous visit. 2. Narcolepsy confirmed by multiple sleep latency test. 3. Obesity. Patient increased weight on 8 pounds. 4. Hypertension. 5. Hypothyroidism. 6. Diabetes mellitus. 7. Status post appendectomy. 8. Status post tonsillectomy. PLAN: 1. Patient will continue to use CPAP equipment every night for the whole night. I will increase range of pressure to 17 cm of water. 2. Losing weight. 3. Sleep hygiene with regular time in bed for at least 8 hours. 4. No driving if feeling sleepiness. 5. Will maintain all necessary prescriptions for CPAP supplies including mask, tube, filters. Thank you very much for allowing me to participate in the management of your patient. Sincerely, Sanjay Kirkland MD, PhD, FAASM Diplomat of [employer] Climatologist of [facility] [place] MMODL / IJN: [id number] /
== END | disposition home or self-care (01) ==
LOC: SLEEP 16:47
PROVIDERS: ATTEND Internal Medicine
DX: G47.33 Obstructive sleep apnea (adult) (pediatric) (principal); G47.419 Narcolepsy without cataplexy; E66.9 Obesity, unspecified; I10 Essential (primary) hypertension; E03.9 Hypothyroidism, unspecified; E11.9 Type 2 diabetes mellitus without complications; Z99.89 Dependence on other enabling machines and devices; Z68.36 Body mass index [BMI] 36.0-36.9, adult; Z90.89 Acquired absence of other organs; Z79.899 Other long term (current) drug therapy

== ENCOUNTER → 2019-08-18 | Outpatient (CLI) | payer MEDICARE ==
--- NOTE | 2019-08-18 18:23 | PN ---
PROGRESS NOTE DATE OF SERVICE: 08/18/2019 73-year-old gentleman has been followed in Sleep Center for treatment of obstructive sleep apnea-hypopnea syndrome. Previous visit was about 3 months ago. At that time, reading from the machine showed apnea-hypopnea index 16.2, and I increased his range of the pressure in the machine from 14 cm of water up to 17 cm of water with a minimal pressure of 7. The patient is able to use machine without significant problems. [place] Sleepiness Scale today is 11. He still feels sleepy sometimes during the day. According to his family. I checked CPAP unit. Usage is 30 out of 30 nights for more than 4 hours. His average usage 8.5 hours per night, which showed great compliance. Range of the pressure 7-17 with an average pressure 16.6. Leak is 36 L/minute. Apnea-hypopnea index is 8.7. Total apnea index 5.2, and central apnea index 0.9 and other events probably relate to hypopneas. MEDICATIONS: Lisinopril, levothyroxine, metformin, Methylphenidate. PHYSICAL EXAM: Patient in no distress. BP 107/61, HR 76, RR 16, height 5 feet 7 inches, weight 238, which is 1 pound more than during previous visit. Body mass index 36.3, temperature 97.5, oxygen saturation at room air 95%. Oropharynx: Extremely low soft palate, Mallampati 4. Neck Supple, no JVD. Thyroid is not palpable. LUNGS Clear to percussion and to auscultation. Good air exchange. No wheezing or rhonchi. HEART S1, S2 regular. No murmurs, gallops, or rubs. ABDOMEN: Obese. Soft and nontender. Bowel sounds are present. No organomegaly appreciated. EXTREMITIES No clubbing or cyanosis. YARN SIZER Awake, alert, and oriented X3. Cranial nerves 2 to 7 intact. There is no fasciculation or atrophy. noted. No focal deficits observed. IMPRESSION: 1. Obstructive sleep apnea-hypopnea syndrome. The patient demonstrated practically 100% compliance with treatment. Respiration improved after increasing pressure, but still slightly above normal two times better although again worse as the previous visit. 2. Narcolepsy confirmed by multiple sleep latency test. 3. Obesity. 4. Hypertension. 5. Hypothyroidism. 6. Diabetes mellitus. 7. Status post appendectomy. 8. Status post tonsillectomy. PLAN: 1. Patient will continue to use CPAP equipment every night. I will increase range of her pressure up to 19 cm of water. 2. Losing weight. 3. Sleep hygiene with regular time in bed for at least 7-1/2 to 8 hours. 4. No driving if feeling sleepiness. 5. Patient will continue to take Methylphenidate 10 mg in the morning and 10 mg in the afternoon. 6. Precautions related to driving. No driving if feeling sleepiness. Thank you very much for allowing me to participate in management of your patient. Sincerely, Sanjay Kirkland MD, PhD, FAASM Diplomat of [employer] Glass Installer Technician of [facility] [place] MMODL / IJN: [id number] /
== END | disposition home or self-care (01) ==
LOC: SLEEP 15:50
PROVIDERS: ATTEND Internal Medicine
DX: G47.33 Obstructive sleep apnea (adult) (pediatric) (principal); G47.419 Narcolepsy without cataplexy; E66.9 Obesity, unspecified; I10 Essential (primary) hypertension; E03.9 Hypothyroidism, unspecified; E11.9 Type 2 diabetes mellitus without complications; Z68.36 Body mass index [BMI] 36.0-36.9, adult; Z90.49 Acquired absence of other specified parts of digestive tract; Z90.89 Acquired absence of other organs; Z99.89 Dependence on other enabling machines and devices; Z79.84 Long term (current) use of oral hypoglycemic drugs; Z79.899 Other long term (current) drug therapy

== ENCOUNTER → 2019-11-17 | Outpatient (CLI) | payer MEDICARE ==
--- NOTE | 2019-11-17 20:32 | PN ---
PROGRESS NOTE DATE OF SERVICE: 11/17/2019. 74-year-old gentleman who has been followed in Sleep Center for treatment of obstructive sleep apnea-hypopnea syndrome. Last time I show the patient in August of 2019. At that time, I increased the range of the pressure in his CPAP unit up to 19 cm of water. The patient is able to use CPAP equipment every night for the whole night. She does not have any problems with the pressure. [place] Sleepiness Scale today is 9. I checked his CPAP unit. Ramp is in automatic regimen. Setting of the pressure in the range between 7 and 19. Average pressure is 15.7 cm of water. Leak is 38 L/minute which is slightly high, but patient is using full-face mask and for full-face mask I believe this would be acceptable. Usage is 30/30 nights and 29/30 nights more than 4 hours. Average usage 8.8 hours per night. Apnea-hypopnea index reading for the last month is 5.2, which is acceptable. MEDICATIONS: Lisinopril, levothyroxine, metformin, Methylphenidate. PHYSICAL EXAM: Patient in no distress. BP 113/72, HR 84, RR 16, height 5 feet 9 inches, weight 232.6 pounds, temperature 97.5, oxygen saturation at room air 96%. Oropharynx extremely low position of soft palate. Mallampati 4. NECK: Supple, no JVD. Thyroid is not palpable. LUNGS: Clear to percussion and to auscultation. Good air exchange. No wheezing or rhonchi. HEART: S1, S2 regular. No murmurs, gallops, or rubs. ABDOMEN: Slightly obese. Soft and nontender. Bowel sounds are present. No organomegaly appreciated. EXTREMITIES: No clubbing or cyanosis. MOBILE SECURITY SPECIALIST: Awake, alert, and oriented X3. Cranial nerves 2 to 7 intact. There is no fasciculation or atrophy. noted. No focal deficits observed. IMPRESSION: 1. Obstructive sleep apnea-hypopnea syndrome. Patient demonstrated great compliance with treatment benefitting from treatment. 2. Narcolepsy confirmed by multiple sleep latency test. 3. Obesity. 4. Hypertension. 5. Diabetes mellitus. 6. Hypothyroidism. 7. Status post appendectomy. 8. Status post tonsillectomy. PLAN: 1. Patient will continue treatment with CPAP with the same regimen of pressure with automatic ramp. 2. Watching and losing weight. 3. Sleep hygiene with regular time in bed for at least 7.5 to 8 hours. 4. Precautions related to driving. 5. No driving if feeling sleepiness. 6. Patient will continue to take Methylphenidate 10 mg in the morning and 10 mg in the afternoon. 7. I will maintain all necessary prescriptions for CPAP supplies including full-face mask, tube, filters. We will consider possibility to use chinstrap additionally. 8. Follow-up visit in 1 year or earlier if patient has any problems. Thank you very much for allowing me to participate in management of your patient. Sincerely, Sanjay Kirkland MD, PhD, FAASM Diplomat of [employer] of Internal Medicine Salesperson Women'S Dresses of [facility] [place] MMODL / KENYETTAN: [id number] /
== END | disposition home or self-care (01) ==
LOC: SLEEP 14:52
PROVIDERS: ATTEND Internal Medicine
DX: G47.33 Obstructive sleep apnea (adult) (pediatric) (principal); G47.419 Narcolepsy without cataplexy; I10 Essential (primary) hypertension; E66.9 Obesity, unspecified; E11.9 Type 2 diabetes mellitus without complications; E03.9 Hypothyroidism, unspecified; Z90.49 Acquired absence of other specified parts of digestive tract; Z90.89 Acquired absence of other organs; Z99.89 Dependence on other enabling machines and devices; Z79.84 Long term (current) use of oral hypoglycemic drugs; Z79.890 Hormone replacement therapy; Z79.899 Other long term (current) drug therapy

== ENCOUNTER 2021-06-30 21:03 | Emergency (ER) | payer MEDICARE ==
[2021-06-30 21:24] VITALS: RESP 20
[2021-06-30] MEDS ORDERED: KETOROLAC 15 MG/ML 1 ML VIAL IM STA (21:32)
[2021-06-30] MEDS ORDERED: KETOROLAC 15 MG/ML 1 ML VIAL IVP STA (21:48)
--- NOTE | 2021-06-30 22:18 | XR ---
EXAMINATION TYPE: XR knee complete bilateral DATE OF EXAM: 06/30/2021 COMPARISON: NONE HISTORY: Knee pain TECHNIQUE: 3 views each knee FINDINGS: I see no fracture nor dislocation. Joint spaces are fairly normal. There is no sign of knee joint effusion. There is vascular calcification. The patella appears intact. IMPRESSION: Negative bilateral knee exam. No fracture.
--- NOTE | 2021-06-30 22:22 | XR ---
EXAMINATION TYPE: XR lumbar spine 2 or 3V DATE OF EXAM: 06/30/2021 COMPARISON: NONE HISTORY: Pain TECHNIQUE: 3 views FINDINGS: Lumbar vertebra have normal alignment. There is some narrowing at L4-5 disc with spurring o f the endplates. Posterior elements are intact. There is no compression fracture. Sacroiliac joints a re intact. IMPRESSION: There are some spondylotic changes at L4-5. No fracture. IMPRESSION:
--- NOTE | 2021-06-30 22:35 | ED ---
Fall HPI - General Chief Complaint: Fall Stated Complaint: Fall Time Seen by Provider: 06/30/21 21:25 Source: patient, EMS, RN notes reviewed Mode of arrival: EMS - History of Present Illness Initial Comments: Patient is a 75-year-old male that presents to emergency department complaining of fall with injury. He notes he was trying to chasecontrolled with his granddaughter when he tripped landing on both knees. He notes that he did not hit his head or lose consciousness. He notes that he is having some lower back pain. He notes that he is able to have bowel movements and PE. He denied any saddle anesthesia weakness numbness tingling in his bilateral lower extremities. He was otherwise a well-appearing 75-year-old male no apparent distress or pain. He denied any chest pain shortness of breath headache nausea vomiting diarrhea constipation fever fatigue chills. - Related Data Home Medications Medication Instructions Recorded Confirmed Cholecalciferol [Vitamin D3] 2,000 unit PO DAILY 09/21/17 06/07/18 Levothyroxine Sodium [Synthroid] 150 mcg PO DAILY 09/21/17 06/07/18 lisinopriL [Zestril] 5 mg PO DAILY 09/21/17 06/07/18 metFORMIN HCL [Glucophage] 500 mg PO QID 09/21/17 06/07/18 Ibuprofen [Motrin] 600 mg PO Q8HR PRN 06/02/18 06/07/18 Methylphenidate HCl [Ritalin] 10 mg PO BID 06/02/18 06/07/18 sitaGLIPtin PHOSPHATE [Januvia] 100 mg PO DAILY 06/02/18 06/07/18 Allergies Allergy/AdvReac Type Severity Reaction Status Date / Time adhesive tape Allergy Rash/Hives Verified 06/07/18 07:22 Review of Systems ROS Statement: Those systems with pertinent positive or pertinent negative responses have been documented in the HPI. ROS Other: All systems not noted in ROS Statement are negative. Past Medical History Past Medical History: Asthma, Diabetes Mellitus, Hypertension, Sleep Apnea/CPAP/BIPAP, Thyroid Disorder Additional Past Medical History / Comment(s): USES CPAP. DDD. HX VERTIGO. POS COLOGARD TEST. History of Any Multi-Drug Resistant Organisms: None Reported Past Surgical History: Appendectomy Additional Past Surgical History / Comment(s): PARTIAL Thyroidectomy. CIRCUMCISION. Past Anesthesia/Blood Transfusion Reactions: No Reported Reaction, Unable to Obtain Additional Past Anesthesia/Blood Transfusion Reaction / Comment(s): ADOPTED, NO KNOWN FAM HX. Past Psychological History: No Psychological Hx Reported Smoking Status: Never smoker Past Alcohol Use History: None Reported Past Drug Use History: None Reported - Past Family History Mother Family Medical History: Unable to Obtain General Exam General appearance: alert, in no apparent distress Head exam: Present: atraumatic, normocephalic, normal inspection Eye exam: Present: normal appearance, PERRL, EOMI. Absent: scleral icterus, conjunctival injection, periorbital swelling Neck exam: Present: normal inspection Respiratory exam: Present: normal lung sounds bilaterally. Absent: respiratory distress, wheezes, rales, rhonchi, stridor Cardiovascular Exam: Present: regular rate, normal rhythm, normal heart sounds. Absent: systolic murmur, diastolic murmur, rubs, gallop, clicks Extremities exam: Present: normal inspection, full ROM, normal capillary refill, other (Large abrasion to the right knee, nonbleeding, nonsuturable. Small abrasion of left knee.). Absent: tenderness, pedal edema, joint swelling, calf tenderness Neurological exam: Present: alert, oriented X3 Psychiatric exam: Present: normal affect, normal mood Skin exam: Present: warm, dry, intact, normal color. 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 X-ray of the bilateral knees, lumbar spine, 15 mg Toradol ordered. X-ray imaging negative for any acute fractures dislocations. Case discussed with Dr. Anaya, patient discharge home with localized wound care and felt primary care. - Radiology Data Radiology results: report reviewed, image reviewed X-ray lumbar spine: There are some spondylitic changes at L4-L5. No fracture. X-ray of the bilateral knees: No acute fractures or dislocations. Disposition Clinical Impression: Fall, Abrasion of knee, bilateral, Back pain, Knee pain, bilateral Disposition: HOME SELF-CARE Condition: Stable Instructions (If sedation given, give patient instructions): Fall Prevention for Older Adults (ED) Additional Instructions: Please return to the Emergency Department if symptoms worsen or any other concerns. Keep knee is clean and dry. Take pain medication as needed. Is patient prescribed a controlled substance at d/c from ED?: No Referrals: Talat Baum MD [Primary Care Provider] - 1-2 days Time of Disposition: 22:35
[2021-06-30 23:10] VITALS: BP 118/72; PULSE 82; TEMP 98.1
== END 2021-06-30 23:10 | disposition home or self-care (01) ==
LOC: EC 21:03
DX: S80.211A Abrasion, right knee, initial encounter (principal); S80.212A Abrasion, left knee, initial encounter; M54.5 Low back pain; I10 Essential (primary) hypertension; E11.9 Type 2 diabetes mellitus without complications; E07.9 Disorder of thyroid, unspecified; J45.909 Unspecified asthma, uncomplicated; Z79.84 Long term (current) use of oral hypoglycemic drugs; Z91.09 Other allergy status, other than to drugs and biological substances; Z79.890 Hormone replacement therapy; Z79.899 Other long term (current) drug therapy; W01.0XXA Fall on same level from slipping, tripping and stumbling without subsequent striking against object, initial encounter; Y93.01 Activity, walking, marching and hiking; Y92.009 Unspecified place in unspecified non-institutional (private) residence as the place of occurrence of the external cause
CPT/HCPCS: 73562; 72100; 99284; 96374; J1885

== ENCOUNTER → 2023-02-06 | Outpatient (CLI) | payer MEDICARE ==
--- NOTE | 2023-02-08 13:44 | MR ---
EXAMINATION TYPE: MR Prostate wo/w con DATE OF EXAM: 02/06/2023 COMPARISON: Prior prostate MRI February 25, 2019 INDICATION: Prostate cancer. PSA: 21.40 ng/ml on January 05, 2023 increased from 20.0 on September 09, 2022 Recent Biopsy and Date: May 09, 2020 Pathology Report (If Applicable): Left lateral apex focal microscopic adenocarcinoma Reddy grade 3+ 3 = 6 involving 0.6 mm approximately 6% of tissue. TECHNIQUE: Examination was performed using a 3T MRI without an endorectal coil. Multiparametric imaging was perf ormed with T2 mutliplanar sequences, axial diffusion weighted imaging and dynamic contrast enhanced i maging, utilizing 10 mL intravenous Gadavist gadolinium contrast. FINDINGS: PROSTATE VOLUME: 5.4 cm SI x 4.6 cm AP x 5.8 cm LR Vol= 75.4 cc PSA DENSITY: 0.28 ng/ml/cc Prostate gland remains enlarged in size and measures larger versus prior study. The peripheral zone shows areas of indistinct hypointensity and T2 weighted images and some areas of slight diminished signal on ADC mapping without significant restricted diffusion. Central transitional zone demonstrates heterogeneity with new or larger area of T2 hypointensity chandana uring 1.9 x 1.2 cm right lateral apex axial image 16. No significant increased signal on diffusion-we ighted images. There is no area of concern posterior right base axial image 19 measuring 1.8 x 1.4 cm without increased signal on diffusion-weighted imaging. Prostate capsule is preserved. No new pelvic adenopathy. No groin hernia. Urinary bladder shows mild to moderate wall thickening and trabeculation on current study. Visualized osseous structures are int act. IMPRESSION: Enlarged prostate redemonstrated. Some areas of concern thought present with elevating PS A repeat sampling would be advised. Highest Assessment Category: 4 MRI Stage: T1c N0 M0 based on review of pelvic images. False negative rates for MRI range from 5-20% depending on risk profile. Assessment Categories: 1 ? Very low (clinically significant cancer is highly unlikely to be present) 2 ? Low (clinically significant cancer is unlikely to be present) 3 ? Intermediate (the presence of clinically significant cancer is equivocal) 4 ? High (clinically significant cancer is likely to be present) 5 ? Very high (clinically significant cancer is highly likely to be present)
== END | disposition home or self-care (01) ==
LOC: RADMRIMAIN 09:00
PROVIDERS: ATTEND Urology
DX: C61 Malignant neoplasm of prostate (principal)
CPT/HCPCS: 72197; A9585

== ENCOUNTER → 2023-04-21 | Outpatient (CLI) | payer MEDICARE ==
[2023-04-21 15:42] LABS: Calcium 9.5 mg/dL (8.7-10.3); Carbon Dioxide 24.6 mmol/L (21.6-31.8); Chloride 105 mmol/L (96-109); Glucose 125 mg/dL (70-110); Potassium 5.1 mmol/L (3.5-5.5); Sodium 141 mmol/L (135-145)
[2023-04-21 15:57] LABS: Basophils # (A) 0.11 X 10*3/uL (0.00-0.10); Basophils % (A) 1.3 %; Eosinophils # (A) 0.37 X 10*3/uL (0.04-0.35); Eosinophils % (A) 4.4 %; HCT 47.8 % (39.6-50.0); HGB 15.4 d/dL (12.0-15.0); Lymphocytes # (A) 2.58 X 10*3/uL (0.90-5.00); Lymphocytes % (A) 30.5 %; MCH 30.3 pg (27.0-32.0); MCHC 32.2 d/dL (32.0-37.0); MCV 93.9 FL (80.0-97.0); Mean Platelet Volume 10.8 FL (9.5-12.2); Monocytes # (A) 0.69 X 10*3/uL (0.20-1.00); Monocytes % (A) 8.2 %; NRBC Per 100 WBC 0 X 10*3/uL (0.00-0.01); Neutrophils # (A) 4.67 X 10*3/uL (1.80-7.70); Neutrophils % (A) 55.1 %; Platelet Count 246 X 10*3/uL (140-440); RBC 5.09 X 10*6/uL (4.40-5.60); RDW 14.6 % (11.5-14.5); WBC 8.46 X 10*3/uL (4.50-10.00)
[2023-04-21 20:41] LABS: Appearance,Urine Clear (Clear); Bilirubin,Urine Negative (Negative); Blood,Urine Negative (Negative); Color,Urine Yellow (Yellow); Ketones,Urine Negative (Negative); Nitrite,Urine Negative (Negative); PH, Urine 5.5; Urobilinogen,Urine 0.2 E.U./DL
== END | disposition home or self-care (01) ==
LOC: LABPAT 11:27
PROVIDERS: ATTEND Family Medicine
DX: Z01.812 Encounter for preprocedural laboratory examination (principal); C61 Malignant neoplasm of prostate; R31.29 Other microscopic hematuria
CPT/HCPCS: 36415; 80048; 81003; 85025; 87086

== ENCOUNTER 2023-04-28 14:28 | Day surgery (SDC) | payer MEDICARE ==
[2023-04-23 15:54] VITALS: BMI 33.1
--- NOTE | 2023-04-28 12:48 | P.HPIHPCON ---
History of Present Illness H&P Date: 04/28/23 Chief Complaint: Prostate cancer This is a 77-year-old male with history of [place] 6 prostate cancer diagnosed back in 2018. Has had 2 follow-up biopsies and 2021 which showed no evidence of progression but his PSA continued to rise underwent MRI of prostate which showed evidence of PIRAD 4 lesions. Discussed with him given this finding and persisting rising PSA recommend repeat sampling. Aware of the risk of bleeding infection and sepsis. Consent for Procedure: I have explained the operation/procedure to the patient, including the risks, benefits, side effects, alternative therapies (including not receiving the proposed treatment or service), the likelihood of the patient achieving his/her goals, and potential recuperation problems for the procedure/sedation/analgesia, as well as any blood products, if indicated. I also explained to the patient the risks, benefits and side effects of the alternatives, as well as the risks related to not receiving the proposed procedure, care, treatment, or services. Past Medical History Past Medical History: Asthma, Diabetes Mellitus, Hypertension, Sleep Apnea/CPAP/BIPAP, Thyroid Disorder Additional Past Medical History / Comment(s): USES CPAP. DDD. HX VERTIGO. BORDERLINE NARCOLEPSY. History of Any Multi-Drug Resistant Organisms: None Reported Past Surgical History: Appendectomy Additional Past Surgical History / Comment(s): PARTIAL Thyroidectomy. CIRCUMCISION. Past Anesthesia/Blood Transfusion Reactions: No Reported Reaction, Unable to Obtain Additional Past Anesthesia/Blood Transfusion Reaction / Comment(s): ADOPTED, NO KNOWN FAM HX. Past Psychological History: No Psychological Hx Reported Smoking Status: Former smoker Past Alcohol Use History: None Reported Additional Past Alcohol Use History / Comment(s): SMOKED 15 YEARS, UP TO 1 /2 PPD, QUIT 1977 Past Drug Use History: None Reported - Past Family History Mother Family Medical History: Unable to Obtain Medications and Allergies Home Medications Medication Instructions Recorded Confirmed Type Levothyroxine Sodium [Synthroid] 150 mcg PO DAILY 09/21/17 04/23/23 History lisinopriL [Zestril] 5 mg PO DAILY 09/21/17 04/23/23 History metFORMIN HCL [Glucophage] 1,000 mg PO BID 09/21/17 04/23/23 History Methylphenidate HCl [Ritalin] 10 mg PO BID 06/02/18 04/23/23 History Pioglitazone [Actos] 30 mg PO DAILY 04/23/23 04/23/23 History Allergies Allergy/AdvReac Type Severity Reaction Status Date / Time adhesive tape Allergy Rash/Hives Verified 04/23/23 15:47 Latex, Natural Rubber Allergy Rash/Hives Verified 04/23/23 15:47 Surgical - Exam - General no distress, no pain - Eyes normal ocular movement, no pale - Respiratory normal expansion, normal respiratory effort Assessment and Plan Assessment: OR for MRI fusion biopsy
[2023-04-28 16:12] VITALS: TEMP 97.6
[2023-04-28] MEDS: LACTATED RINGERS 1,000 ML IV SCH ×2 (16:15→16:17)
[2023-04-28] MEDS: GENTAMICIN 120 MG in SODIUM CHLORIDE 0.9% 100 ML IVPB PRN ×2 (16:15→16:17)
[2023-04-28 16:17] LABS: Glucose,Whole Blood 129 mg/dL (70-110)
[2023-04-28] MEDS ORDERED: PROPOFOL 10 MG/ML 20 ML VIAL IV ONE (16:39)
--- NOTE | 2023-04-28 17:00 | P.OP ---
Date of Procedure: 04/28/23 Preoperative Diagnosis: Prostate cancer Postoperative Diagnosis: same Procedure(s) Performed: MRI fusion prostate biopsy Implants: none Anesthesia: MAC Surgeon: Ricardo Cade Estimated Blood Loss (ml): 1 Pathology: other (Prostate biopsies) Condition: stable Disposition: PACU Indications for Procedure: This is a 77-year-old male with history of [place] 6 prostate cancer diagnosed back in 2018. Has had 2 follow-up biopsies 2019 and 2021 which showed no evidence of progression but his PSA continued to rise underwent MRI of prostate which showed evidence of PIRAD 4 lesions. Discussed with him given this finding and persisting rising PSA recommend repeat sampling. Aware of the risk of bleeding infection and sepsis. Description of Procedure: The patient was taken to the operating room and placed in the left lateral d ecubitus position. The [employer] transrectal ultrasound probe was placed intrarectally. It was then placed within the stand of the [employer] MRI/TRUS Fusion for Prostate Biopsy system. The prostate was imaged in both the axial and sagittal planes, L. Using the Biopsy gun, 4 biopsies were obtained from the target lesion, there were was two lesion. The remaining 12 biopsies of the peripheral zone were obtained utilizing a standard template. Once the procedure was completed, the ultrasound probe was removed. The patient tolerated the procedure well was taken to the recovery room stable condition
[2023-04-28 17:29] VITALS: BP 128/78; PULSE 70; RESP 20
== END 2023-04-28 17:47 ==
LOC: OR 14:28
PROVIDERS: ATTEND Urology
DX: C61 Malignant neoplasm of prostate (principal); E11.9 Type 2 diabetes mellitus without complications; I10 Essential (primary) hypertension; G47.30 Sleep apnea, unspecified; E03.9 Hypothyroidism, unspecified; J44.9 Chronic obstructive pulmonary disease, unspecified; Z90.49 Acquired absence of other specified parts of digestive tract; Z90.89 Acquired absence of other organs; Z91.040 Latex allergy status; Z98.890 Other specified postprocedural states; Z87.891 Personal history of nicotine dependence; Z79.899 Other long term (current) drug therapy
CPT/HCPCS: 55700; J1580; J2704; 88305; 88344

== ENCOUNTER 2024-04-02 01:24 | Emergency (ER) | payer MEDICARE ==
[2024-04-02 03:04] VITALS: TEMP 98
--- NOTE | 2024-04-02 03:39 | ED ---
Extremity Problem HPI - General Chief complaint: Extremity Problem,Nontraumatic Stated complaint: Cramping and pain in Left foot Time Seen by Provider: 04/02/24 02:00 Source: patient, RN notes reviewed Mode of arrival: ambulatory Limitations: no limitations - History of Present Illness Initial comments: 78-year-old male with a past medical history significant for diabetes and neuropathy scented to the ED with complaints of left foot pain near his fifth toe. Patient reports that this is a chronic issue ongoing for the past reports intermittent pain last. Tonight patient reports pain lasted longer than usual prompting presentation to the ED for further evaluation. At this time, reports pain is resolved. No fever or chills. No chest pain shortness of breath. No other complaints at this time. - Related Data Home Medications Medication Instructions Recorded Confirmed Levothyroxine Sodium [Synthroid] 150 mcg PO DAILY 09/21/17 04/23/23 lisinopriL [Zestril] 5 mg PO DAILY 09/21/17 04/23/23 metFORMIN HCL [Glucophage] 1,000 mg PO BID 09/21/17 04/23/23 Methylphenidate HCl [Ritalin] 10 mg PO BID 06/02/18 04/23/23 Pioglitazone [Actos] 30 mg PO DAILY 04/23/23 04/23/23 Ciprofloxacin HCl [Cipro] 500 mg PO BID 04/28/23 04/28/23 Allergies Allergy/AdvReac Type Severity Reaction Status Date / Time adhesive tape Allergy Rash/Hives Verified 04/28/23 15:56 Latex, Natural Rubber Allergy Rash/Hives Verified 04/28/23 15:56 Review of Systems ROS Statement: Those systems with pertinent positive or pertinent negative responses have been documented in the HPI. ROS Other: All systems not noted in ROS Statement are negative. Past Medical History Past Medical History: Asthma, Diabetes Mellitus, Hypertension, Sleep Apnea/CPAP/BIPAP, Thyroid Disorder Additional Past Medical History / Comment(s): USES CPAP. DDD. HX VERTIGO. POS COLOGARD TEST. History of Any Multi-Drug Resistant Organisms: None Reported Past Surgical History: Appendectomy Additional Past Surgical History / Comment(s): PARTIAL Thyroidectomy. CIRCUMCISION. Past Anesthesia/Blood Transfusion Reactions: No Reported Reaction, Unable to Obtain Additional Past Anesthesia/Blood Transfusion Reaction / Comment(s): ADOPTED, NO KNOWN FAM HX. Past Psychological History: No Psychological Hx Reported Smoking Status: Never smoker Past Alcohol Use History: None Reported Past Drug Use History: None Reported - Past Family History Mother Family Medical History: Unable to Obtain General Exam Limitations: no limitations General appearance: alert, in no apparent distress Eye exam: Present: normal appearance ENT exam: Present: normal exam Neck exam: Present: normal inspection Respiratory exam: Present: normal lung sounds bilaterally Cardiovascular Exam: Present: regular rate GI/Abdominal exam: Present: soft, normal bowel sounds. Absent: distended, tenderness, guarding, rebound, rigid Extremities exam: Present: other (Patient reported pain of his left lateral foot near his left fifth toe. Palpation shows no tenderness. No warmth or erythema. No significant pitting edema of his left lower extremity. DP/PT pulses intact. Negative Homans' sign.) Neurological exam: Present: alert, oriented X3 Skin exam: Present: warm, dry Course Vital Signs 04/02/24 01:41 Temperature 98 F Pulse Rate 64 Respiratory 18 Rate Blood Pressure 139/72 O2 Sat by Pulse 96 Oximetry Medical Decision Making - Medical Decision Making Was pt. sent in by a medical professional or institution (, PA, COUPON CLERK, urgent care, hospital, or retirement...) When possible be specific @ -No Did you speak to anyone other than the patient for history (EMS, parent, family, police, friend...)? What history was obtained from this source @ -No Did you review nursing and triage notes (agree or disagree)? Why? @ -I reviewed and agree with nursing and triage notes Were old charts reviewed (outside hosp., previous admission, EMS record, old EKG, old radiological studies, urgent care reports/EKG's, retirement records)? Report findings @ -No old charts were reviewed Differential Diagnosis (chest pain, altered mental status, abdominal pain women, abdominal pain men, vaginal bleeding, weakness, fever, dyspnea, syncope, headache, dizziness, GI bleed, back pain, seizure, CVA, palpatations, mental health, musculoskeletal)? @ -Differential Musculoskeletal Muscular strain, contusion, ligament sprain, fracture, arthritis, septic arthritis, bursitis, cellulitis, muscle spasm, nerve compression, DVT, arterial occlusion, herpes zoster, electrolyte abnormality, tumor.... This is not meant to be in all inclusive list EKG interpreted by me (3pts min.). @ -None X-rays interpreted by me (1pt min.). @ -None done CT interpreted by me (1pt min.). @ -None done U/S interpreted by me (1pt. min.). @ -None done What testing was considered but not performed or refused? (CT, X-rays, U/S, labs)? Why? @ -None What meds were considered but not given or refused? Why? @ -None Did you discuss the management of the patient with other professionals (professionals i.e. , PA, COUPON CLERK, lab, RT, psych nurse, administrator social welfare, director check, teacher, public health service officer, case operator)? Give summary @ -No Was smoking cessation discussed for >3mins.? @ -No Was critical care preformed (if so, how long)? @ -No Were there social determinants of health that impacted care today? How? (Homelessness, low income, unemployed, alcoholism, drug addiction, transportation, low edu. Level, literacy, decrease access to med. care, long-term, rehab)? @ -No Was there de-escalation of care discussed even if they declined (Discuss DNR or withdrawal of care, Hospice)? DNR status @ -No What co-morbidities impacted this encounter? (DM, HTN, Smoking, COPD, CAD, Cancer, CVA, ARF, Chemo, Hep., AIDS, mental health diagnosis, sleep apnea, morbid obesity)? @ -Diabetes Was patient admitted / discharged? Hospital course, mention meds given and route, prescriptions, significant lab abnormalities, going to OR and other pertinent info. @ -Discharge 78-year-old male presenting to the ED with complaints of left lateral foot pain. This has been ongoing for the past 2 to 3 months. States that pain is intermittent and usually last 20 to 30 seconds however tonight lasted longer tori n usual which brought her presentation to the ED for further evaluation. On examination no significant pitting edema of the left lower extremity. DP/PT pulses intact. Negative Homans' sign. Strength and sensation intact. No warmth or erythema concerning for infection. Symptoms likely musculoskeletal in nature. Discharged home in stable condition with instructions to follow-up with his PCP. Discussed return precautions with patient and family who verbalized agreement. Undiagnosed new problem with uncertain prognosis? @ -No Drug Therapy requiring intensive monitoring for toxicity (Heparin, Nitro, Insulin, Cardizem)? @ -No Were any procedures done? @ -No Diagnosis/symptom? @ -Left foot pain Acute, or Chronic, or Acute on Chronic? @ -Acute on chronic Uncomplicated (without systemic symptoms) or Complicated (systemic symptoms)? @ -Uncomplicated Side effects of treatment? @ -No Exacerbation, Progression, or Severe Exacerbation? @ -No Poses a threat to life or bodily function? How? (Chest pain, [place], [place], pneumonia, PE, COPD, DKA, ARF, appy, cholecystitis, CVA, Diverticulitis, Homicidal, S uicidal, threat to staff... and all critical care pts) @ -No Disposition Clinical Impression: Left foot pain Disposition: HOME SELF-CARE Condition: Good Additional Instructions: Please return to the Emergency Department if symptoms worsen or any other concerns. Please follow-up with your primary care provider. Is patient prescribed a controlled substance at d/c from ED?: No Referrals: Talat Baum MD [Primary Care Provider] - 1-2 days Time of Disposition: 03:41
[2024-04-02 03:56] VITALS: BP 133/80; PULSE 60; RESP 17
== END 2024-04-02 03:53 | disposition home or self-care (01) ==
LOC: EC 01:24
DX: M79.672 Pain in left foot (principal); E11.40 Type 2 diabetes mellitus with diabetic neuropathy, unspecified; Z79.84 Long term (current) use of oral hypoglycemic drugs; Z91.040 Latex allergy status; Z88.8 Allergy status to other drugs, medicaments and biological substances
CPT/HCPCS: 99283

== ENCOUNTER → 2024-04-21 | Outpatient (CLI) | payer MEDICARE ==
--- NOTE | 2024-04-24 13:28 | PE ---
EXAMINATION TYPE: PET CT fusion skull to thigh DATE OF EXAM: 04/21/2024 CLINICAL INDICATION:Male, 78 years old with history of C61 MALIGNANT NEOPLASM OF PROSTATE; TECHNIQUE: Following the intravenous administration of 5.3 mCi of Ga-68 Illuccix (PSMA), whole body images are performed from the skull base to the midthigh. Images are reviewed on the computer in th e coronal, axial, and sagittal planes. Reconstructed rotating images are created on independent work station and reviewed on the computer. A non-contrast CT is performed in conjunction with the PET sc an. CT DLP: 969 mGycm, Automated exposure control for dose reduction was used. COMPARISON: CT None, PET/CT None, MRI 02/06/2023 FINDINGS: Mediastinal SUV mean is 1.4. Hepatic parenchyma SUV mean is 5.4. SKULL BASE AND NECK: No suspicious radiotracer activity. CHEST, MEDIASTINUM, AND HILAR REGION: No suspicious radiotracer activity. ABDOMEN AND PELVIS: * Intense radiotracer uptake within the anterior right prostate gland near the apex/mid gland measur ing 2.6 x 2.5 cm. This likely crosses midline and involves the mid gland and extends down towards ape x. * There is heterogenous background signal throughout the pelvis which limits evaluation. No enlarged lymph nodes with increased increased metabolic activity identified. MUSCULOSKELETAL STRUCTURES: No suspicious radiotracer activity. OTHER CT: Bilateral aphakia. Atherosclerosis of the carotid bifurcations. Aortic valve leaflet calcif ications. Bilateral renal cysts. Scattered colonic diverticula. Prostatomegaly. IMPRESSION: 1. Focal radiotracer uptake within the prostate gland in the area of concern on prior MRI prostate g land report. Area measures up to to 2.6 x 2.5 cm involving the anterior right central gland mid gland and apex and crossing likely crosses midline. 2. No enlarged lymph nodes with increased metabolic activity at this time. Heterogenous background s ignal limits evaluation of small lymph nodes throughout the pelvis.
== END | disposition home or self-care (01) ==
LOC: RADPETMAIN 15:37
PROVIDERS: ATTEND Radiology Radiation Oncology
DX: C61 Malignant neoplasm of prostate (principal); Z87.891 Personal history of nicotine dependence
CPT/HCPCS: 78815; A9596

== ENCOUNTER → 2024-06-22 | Outpatient (CLI) | payer MEDICARE | END | disposition home or self-care (01) | LOC: LABWHC1 16:28 | PROVIDERS: ATTEND Radiology Radiation Oncology | DX: Z01.812 Encounter for preprocedural laboratory examination (principal); C61 Malignant neoplasm of prostate | CPT/HCPCS: 36415; 84153 ==

== ENCOUNTER 2024-06-28 10:30 | Day surgery (SDC) | payer MEDICARE ==
[2024-06-28] MEDS ORDERED: LACTATED RINGERS 1,000 ML BAG ONE (12:32)
[2024-06-28] MEDS ORDERED: LIDOCAINE 1% INJ 10MG/ML (10 ML MDV) ONE (12:32)
[2024-06-28] MEDS ORDERED: SODIUM CHLORIDE 0.9% 50 ML BAG IV ONE (12:32)
[2024-06-28] MEDS ORDERED: ONDANSETRON 4 MG/2 ML VIAL ONE ×2 (12:32)
[2024-06-28] MEDS ORDERED: ceFAZolin 10 GM VIAL IVPB ONE (12:32)
[2024-06-28] MEDS ORDERED: PROPOFOL 10 MG/ML 20 ML VIAL IV ONE (13:23)
--- NOTE | 2024-07-01 15:56 | PCN ---
PROCEDURE NOTE PREOPERATIVE DIAGNOSIS: Prostate cancer. POSTOPERATIVE DIAGNOSIS: Prostate cancer. OPERATION: SpaceOAR gel placement. IMPLANT: SpaceOAR gel. COMPLICATIONS: None. CONDITION: Stable. ESTIMATED BLOOD LOSS: 1 mL. INDICATIONS: This is a 78-year-old male with a history of [place] 6 prostate cancer, proceeding with radiation therapy. Option of a SpaceOAR gel was discussed with him, aware of the risks, benefits, and rationale of doing the surgery in detail. OPERATION: The patient was brought to the operating room, sedation was induced. He was prepped and draped in sterile fashion and placed in a dorsal lithotomy position. Next, using 2% lidocaine, the perineum was anesthetized. Next, using a spinal needle, this was advanced under ultrasound guidance into the perirectal fat plane between the prostate and the rectum, location of the needle was confirmed on ultrasound. Next, hydrodissection was performed using saline, which confirmed the needle location and there was excellent dissection at that level, there was no evidence of rectal perforation. At this time, 10 mL of SpaceOAR gel was injected under ultrasound guidance at the periprosthetic plane between the prostate and the rectum. There was no evidence of rectal perforation and there was excellent space developed between the rectum and the prostate. At this point, the needle was withdrawn. The patient tolerated the procedure well, was taken to Recovery in stable condition. MMODL / IJN: [id number] /
== END 2024-06-28 15:10 ==
LOC: OR 10:30
PROVIDERS: ATTEND Urology
DX: C61 Malignant neoplasm of prostate

== ENCOUNTER 2025-01-13 18:03 | Emergency (ER) | payer MEDICARE ==
[2025-01-13 18:18] VITALS: BP 143/67; PULSE 68; RESP 20; TEMP 97.7
--- NOTE | 2025-01-13 19:19 | ED ---
General Adult HPI - General Chief complaint: Extremity Injury, Lower Stated complaint: leg issues Time Seen by Provider: 01/13/25 18:55 Source: patient, RN notes reviewed Mode of arrival: ambulatory Limitations: no limitations - History of Present Illness Initial comments: 79-year-old male presented to the emergency department with with referral from delivery professional with concerns of bilateral lower extremity erythema and edema. States that he follows with his delivery professional every 10 weeks there is concern for possible blood clot and cellulitis. Patient denies fevers, chills, nausea, vomiting. Denies history of DVT, PE, recent travel, recent surgeries, di fficulty breathing, heart palpitations. Denies recent or current antibiotic use. - Related Data Home Medications Medication Instructions Recorded Confirmed Levothyroxine Sodium [Synthroid] 150 mcg PO DAILY 09/21/17 04/23/23 lisinopriL [Zestril] 5 mg PO DAILY 09/21/17 04/23/23 metFORMIN HCL [Glucophage] 1,000 mg PO BID 09/21/17 04/23/23 Methylphenidate HCl [Ritalin] 10 mg PO BID 06/02/18 04/23/23 Pioglitazone [Actos] 30 mg PO DAILY 04/23/23 04/23/23 Ciprofloxacin HCl [Cipro] 500 mg PO BID 04/28/23 04/28/23 Previous Rx's Medication Instructions Recorded Apixaban [Eliquis Starter Pack 10 mg PO DIRECTED 30 Days #1 01/13/25 (for VTE)] packet Cephalexin [Keflex] 500 mg PO Q6HR #40 cap 01/13/25 Allergies Allergy/AdvReac Type Severity Reaction Status Date / Time adhesive tape Allergy Rash/Hives Verified 01/13/25 18:18 Latex, Natural Rubber Allergy Rash/Hives Verified 01/13/25 18:18 Review of Systems ROS Statement: Those systems with pertinent positive or pertinent negative responses have been documented in the HPI. ROS Other: All systems not noted in ROS Statement are negative. Past Medical History Past Medical History: Asthma, Diabetes Mellitus, Hypertension, Sleep Apnea/CPAP/BIPAP, Thyroid Disorder Additional Past Medical History / Comment(s): USES CPAP. DDD. HX VERTIGO. POS COLOGARD TEST. History of Any Multi-Drug Resistant Organisms: None Reported Past Surgical History: Appendectomy Additional Past Surgical History / Comment(s): PARTIAL Thyroidectomy. CIRCUMCISION. Past Anesthesia/Blood Transfusion Reactions: No Reported Reaction, Unable to Obtain Additional Past Anesthesia/Blood Transfusion Reaction / Comment(s): ADOPTED, NO KNOWN FAM HX. Past Psychological History: No Psychological Hx Reported Smoking Status: Never smoker Past Alcohol Use History: None Reported Past Drug Use History: None Reported - Past Family History Mother Family Medical History: Unable to Obtain General Exam Limitations: no limitations General appearance: alert, in no apparent distress Neck exam: Present: normal inspection. Absent: tenderness, meningismus, lymphadenopathy Respiratory exam: Present: normal lung sounds bilaterally. Absent: respiratory distress, wheezes, rales, rhonchi, stridor Cardiovascular Exam: Present: regular rate, normal rhythm, normal heart sounds. Absent: systolic murmur, diastolic murmur, rubs, gallop, clicks GI/Abdominal exam: Present: soft, normal bowel sounds. Absent: distended, tenderness, guarding, rebound, rigid Left Lower Leg exam: Present: swelling, erythema. Absent: crepitus, palpable cord, Homans' sign Ankle exam: Present: swelling Foot/Toe exam: Present: swelling Gait: observed and normal Right Lower Leg exam: Present: tenderness, swelling, erythema. Absent: deformity, palpable cord Foot/Toe exam: Present: swelling Back exam: Present: normal inspection Course Vital Signs 01/13/25 18:16 Temperature 97.7 F Pulse Rate 68 Respiratory 20 Rate Blood Pressure 143/67 O2 Sat by Pulse 97 Oximetry Medical Decision Making - Medical Decision Making Was pt. sent in by a medical professional or institution (, PA, MATHEMATICIAN RESEARCH, urgent care, hospital, or usp...) When possible be specific @ -No Did you speak to anyone other than the patient for history (EMS, parent, family, police, friend...)? What history was obtained from this source @ -No Did you review nursing and triage notes (agree or disagree)? Why? @ -I reviewed and agree with nursing and triage notes Were old charts reviewed (outside hosp., previous admission, EMS record, old EKG, old radiological studies, urgent care reports/EKG's, usp records)? Report findings @ -No old charts were reviewed Differential Diagnosis (chest pain, altered mental status, abdominal pain women, abdominal pain men, vaginal bleeding, weakness, fever, dyspnea, syncope, head ache, dizziness, GI bleed, back pain, seizure, CVA, palpatations, mental health, musculoskeletal)? @ -deep vein thrombosis, superficial thrombophlebitis, cellulitis, venous insufficiency, this list is not all inclusive EKG interpreted by me (3pts min.). @ -None X-rays interpreted by me (1pt min.). @ -None done CT interpreted by me (1pt min.). @ -None done U/S interpreted by me (1pt. min.). @ -Ultrasound of bilateral lower extremities remarkable for a DVT of the left popliteal vein What testing was considered but not performed or refused? (CT, X-rays, U/S, labs)? Why? @ -None What meds were considered but not given or refused? Why? @ -None Did you discuss the management of the patient with other professionals (professionals i.e. , PA, MATHEMATICIAN RESEARCH, lab, RT, psych nurse, outreach and education social worker, home theater installer, teacher, credit risk officer, case supervisor)? Give summary @ -No Was smoking cessation discussed for >3mins.? @ -No Was critical care preformed (if so, how long)? @ -No Were there social determinants of health that impacted care today? How? (Homelessness, low income, unemployed, alcoholism, drug addiction, transportation, low edu. Level, literacy, decrease access to med. care, detention, r ehab)? @ -No Was there de-escalation of care discussed even if they declined (Discuss DNR or withdrawal of care, Hospice)? DNR status @ -No What co-morbidities impacted this encounter? (DM, HTN, Smoking, COPD, CAD, Cancer, CVA, ARF, Chemo, Hep., AIDS, mental health diagnosis, sleep apnea, morbid obesity)? @ -None Was patient admitted / discharged? Hospital course, mention meds given and route, prescriptions, significant lab abnormalities, going to OR and other pertinent info. @ -Discharge. 79-year-old male presenting with referral from delivery professional with concern for cellulitis and blood clot. Bilateral lower extremities. There is noted 2+ pitting edema bilaterally with erythema and anterior. Venous insufficiency wounds. Laboratory testing including CBC and CMP, lactic acid and CRP within normal. Ultrasound reveals a DVT of the left lower extremity of the popliteal pain. Patient denies treated with Eliquis in addition to Rocephin for cellulitis. Recommend follow-up with primary care provider in the next 1 to 3 days for further evaluation and continue medications as prescribed. Case discussed with Dr. Thakkar Undiagnosed new problem with uncertain prognosis? @ -No Drug Therapy requiring intensive monitoring for toxicity (Heparin, Nitro, Insulin, Cardizem)? @ -No Were any procedures done? @ -No Diagnosis/symptom? @ -deep vein thrombosis of popliteal vein of left leg, cellulitis Acute, or Chronic, or Acute on Chronic? @ -acute Uncomplicated (without systemic symptoms) or Complicated (systemic symptoms)? @ -uncomplicated Side effects of treatment? @ -No Exacerbation, Progression, or Severe Exacerbation? @ -No Poses a threat to life or bodily function? How? (Chest pain, [place], [place], pneumonia, PE, COPD, DKA, ARF, appy, cholecystitis, CVA, Diverticulitis, Homicidal, Suicidal, threat to staff... and all critical care pts) @ -No - Lab Data Result diagrams: 01/13/25 21:10 01/13/25 21:10 Lab Results 01/13/25 01/13/25 01/13/25 Range/Units 21:10 21:10 21:10 WBC 8.0 (3.8-10.6) k/uL RBC 4.54 (4.30-5.90) m/uL Hgb 13.6 (13.0-17.5) gm/dL Hct 43.0 (39.0-53.0) % MCV 94.7 (80.0-100.0) fL MCH 30.0 (25.0-35.0) pg MCHC 31.7 (31.0-37.0) g/dL RDW 13.4 (11.5-15.5) % Plt Count 230 (150-450) k/uL MPV 7.9 Neutrophils % 63 % Lymphocytes % 20 % Monocytes % 7 % Eosinophils % 5 % Basophils % 1 % Neutrophils # 5.0 (1.3-7.7) k/uL Lymphocytes # 1.6 (1.0-4.8) k/uL Monocytes # 0.6 (0-1.0) k/uL Eosinophils # 0.4 (0-0.7) k/uL Basophils # 0.1 (0-0.2) k/uL Sodium 136 L (137-145) mmol/L Potassium 4.7 (3.5-5.1) mmol/L Chloride 103 (98-107) mmol/L Carbon Dioxide 25 (22-30) mmol/L Anion Gap 8 mmol/L BUN 25 H (9-20) mg/dL Creatinine 1.04 (0.66-1.25) mg/dL Est GFR (CKD-EPI)AfAm 80 (>60 ml/min/1.73 sqM) Est GFR (CKD-EPI)NonAf 69 (>60 ml/min/1.73 sqM) Glucose 156 H (74-99) mg/dL Plasma Lactic Acid John 1.2 (0.7-2.0) mmol/L Calcium 9.4 (8.4-10.2) mg/dL Total Bilirubin 1.2 (0.2-1.3) mg/dL AST 30 (17-59) U/L ALT 26 (4-49) U/L Alkaline Phosphatase 128 H (38-126) U/L C-Reactive Protein 0.6 (<1.0) mg/dL Total Protein 7.8 (6.3-8.2) g/dL Albumin 4.0 (3.5-5.0) g/dL Disposition Clinical Impression: Acute deep vein thrombosis (DVT) of popliteal vein, Cellulitis of both lower extremities Disposition: HOME SELF-CARE Condition: Stable Instructions (If sedation given, give patient instructions): Apixaban (By mout h), Cellulitis (ED), Deep Vein Thrombosis (ED) Additional Instructions: Please return to the Emergency Department if symptoms worsen or any other concerns. Prescriptions: Apixaban [Eliquis Starter Pack (for VTE)] 10 mg PO DIRECTED 30 Days #1 packet Cephalexin [Keflex] 500 mg PO Q6HR #40 cap Is patient prescribed a controlled substance at d/c from ED?: No Referrals: Talat Baum MD [Primary Care Provider] - 1-2 days Time of Disposition: 21:51
--- NOTE | 2025-01-13 20:59 | US ---
EXAMINATION TYPE: US venous doppler duplex LE BI DATE OF EXAM: 01/13/2025 8:38 PM COMPARISON: NONE CLINICAL INDICATION: Male, 79 years old with history of erythema, edema, pain, r/o clot; swollen ankl es bilateral, redness TECHNIQUE: The lower extremity deep venous system is examined utilizing real time linear array sonog ignacio with graded compression, color doppler sonography, and spectral doppler. SIDE PERFORMED: Bilateral FINDINGS: VESSELS IMAGED: Common Femoral Vein Deep Femoral Vein Greater Saphenous Vein * Femoral Vein Popliteal Vein Small Saphenous Vein * Proximal Calf Veins (* superficial vessels) Right Leg: Negative for DVT, Color Doppler imaging shows patency of the vessels. Spectral waveforms are within normal limits. Left Leg: internal echoes that did not compress within popliteal vein IMPRESSION: DVT left popliteal vein. [facility], , 01/13/2025 8:56 PM
[2025-01-13] MEDS: APIXABAN 5 MG TAB PO STA (21:11)
[2025-01-13 21:32] LABS: Basophils # (A) 0.1 k/uL (0-0.2); Basophils % (A) 1 %; Eosinophils # (A) 0.4 k/uL (0-0.7); Eosinophils % (A) 5 %; HGB 13.6 gm/dL (13.0-17.5); Lymphocytes # (A) 1.6 k/uL (1.0-4.8); Lymphocytes % (A) 20 %; MCHC 31.7 g/dL (31.0-37.0); MCV 94.7 fL (80.0-100.0); Mean Platelet Volume 7.9; Monocytes # (A) 0.6 k/uL (0-1.0); Monocytes % (A) 7 %; Neutrophils % (A) 63 %; Platelet Count 230 k/uL (150-450); RBC 4.54 m/uL (4.30-5.90); RDW 13.4 % (11.5-15.5)
[2025-01-13 21:37] LABS: ALT 26 U/L (4-49); AST 30 U/L (17-59); African American GFR (CKD) 80 (>60 ml/min/1.73 sqM); Alkaline Phosphatase 128 U/L (38-126); Anion Gap 8 mmol/L; Blood Urea Nitrogen 25 mg/dL (9-20); C Reactive Protein 0.6 mg/dL (<1.0); Calcium 9.4 mg/dL (8.4-10.2); Carbon Dioxide 25 mmol/L (22-30); Chloride 103 mmol/L (98-107); Glucose 156 mg/dL (74-99); Non-African American GFR(CKD) 69 (>60 ml/min/1.73 sqM); Potassium 4.7 mmol/L (3.5-5.1); Sodium 136 mmol/L (137-145); Total Bilirubin 1.2 mg/dL (0.2-1.3); Total Protein 7.8 g/dL (6.3-8.2)
[2025-01-13] MEDS: cefTRIAXone IN SWFI 1,000 MG/10 ML SYRINGE IVP STA (22:11)
== END 2025-01-13 22:15 | disposition home or self-care (01) ==
LOC: EC 18:03
DX: I82.432 Acute embolism and thrombosis of left popliteal vein (principal); L03.116 Cellulitis of left lower limb; L03.115 Cellulitis of right lower limb
CPT/HCPCS: 36415; 80053; 83605; 85025; 86140; 93970; 99283; 96374; J0696

== ENCOUNTER 2025-04-14 12:45 | Emergency (ER) | payer MEDICARE ==
[2025-04-14 12:54] VITALS: RESP 18
--- NOTE | 2025-04-14 13:12 | ED ---
General Adult HPI - General Chief complaint: Fall Stated complaint: fall on thinners, arm pain Time Seen by Provider: 04/14/25 12:55 Source: patient, EMS, RN notes reviewed, old records reviewed Mode of arrival: EMS - History of Present Illness Initial comments: This is a 79-year-old male he states he slipped and fell in the tub he complains of right shoulder pain. Patient states he also bumped his head and he is on Eliquis. Patient denies any neck pain. Patient has chest or back pain. Patient [place] any hip pain or leg pain. Patient has any other problems at this time. Patient did not lose consciousness. - Related Data Home Medications Medication Instructions Recorded Confirmed Levothyroxine Sodium [Synthroid] 150 mcg PO DAILY 09/21/17 04/14/25 lisinopriL [Zestril] 5 mg PO DAILY 09/21/17 04/14/25 metFORMIN HCL [Glucophage] 1,000 mg PO BID 09/21/17 04/14/25 Methylphenidate HCl [Ritalin] 10 mg PO BID 06/02/18 04/14/25 Apixaban [Eliquis] 5 mg PO BID 04/14/25 04/14/25 Pioglitazone [Actos] 45 mg PO DAILY 04/14/25 04/14/25 Allergies Allergy/AdvReac Type Severity Reaction Status Date / Time adhesive tape Allergy Rash/Hives Verified 04/14/25 15:59 Latex, Natural Rubber Allergy Rash/Hives Verified 04/14/25 15:59 Review of Systems ROS Statement: Those systems with pertinent positive or pertinent negative responses have been documented in the HPI. ROS Other: All systems not noted in ROS Statement are negative. Past Medical History Past Medical History: Asthma, Diabetes Mellitus, Hypertension, Sleep Apnea/CPAP/BIPAP, Thyroid Disorder Additional Past Medical History / Comment(s): USES CPAP. DDD. HX VERTIGO. POS COLOGARD TEST. History of Any Multi-Drug Resistant Organisms: None Reported Past Surgical History: Appendectomy Additional Past Surgical History / Comment(s): PARTIAL Thyroidectomy. CIRCUMCISION. Past Anesthesia/Blood Transfusion Reactions: No Reported Reaction, Unable to Obtain Additional Past Anesthesia/Blood Transfusion Reaction / Comment(s): ADOPTED, NO KNOWN FAM HX. Past Psychological History: No Psychological Hx Reported Smoking Status: Never smoker Past Alcohol Use History: None Reported Past Drug Use History: None Reported - Past Family History Mother Family Medical History: Unable to Obtain General Exam - General Exam Comments Initial Comments: GENERAL: Patient is well-developed and well-nourished. Patient is nontoxic and well- hydrated and is in moderate distress. ENT: Neck is soft and supple. No significant lymphadenopathy is noted. Oropharynx is clear. Moist mucous membranes. Patient has a c-collar on at this time EYES: The sclera were anicteric and conjunctiva were pink and moist. Extraocular movements were intact and pupils were equal round and reactive to light. Eyelids were unremarkable. SKIN: Skin is clear with no lesions or rashes and otherwise unremarkable. NEUROLOGIC: Patient is alert and oriented x3. Cranial nerves II through XII are grossly intact. Motor and sensory are also intact. Normal speech, volume and content. Symmetrical smile. MUSCULOSKELETAL: Proximal anterior arm pain on palpation LYMPHATICS: No significant lymphadenopathy is noted PSYCHIATRIC: Normal psychiatric evaluation. Course Vital Signs 04/14/25 12:49 Temperature 98.2 F Pulse Rate 70 Respiratory 18 Rate Blood Pressure 136/79 O2 Sat by Pulse 98 Oximetry Medical Decision Making - Medical Decision Making Was pt. sent in by a medical professional or institution (, PA, STORE LEADER, urgent care, hospital, or residential...) When possible be specific @ -No Did you speak to anyone other than the patient for history (EMS, parent, family, police, friend...)? What history was obtained from this source @ -No Did you review nursing and triage notes (agree or disagree)? Why? @ -I reviewed and agree with nursing and triage notes Were old charts reviewed (outside hosp., previous admission, EMS record, old EKG, old radiological studies, urgent care reports/EKG's, residential records)? Report findings @ -No old charts were reviewed Differential Diagnosis? @ -Chest pain, altered mental status, abdominal pain women, abdominal pain men, vaginal bleeding, weakness, fever, dyspnea, syncope, headache, dizziness, GI bleed, back pain, seizure, CVA, palpatations, mental health, musculoskeletal EKG interpreted by me (3pts min.). @ -As above X-rays interpreted by me (1pt min.). @ -X-ray of the shoulder shows the tip of the scapular fracture. X-ray of the scapula shows the tip of the scapular fracture. Chest x-ray shows no acute dramality rib x-ray shows no acute abnormality. CT interpreted by me (1pt min.). @ -CT of the head and neck showed no acute normality. U/S interpreted by me (1pt. min.). @ -None done What testing was considered but not performed or refused? (CT, X-rays, U/S, labs)? Why? @ -None What meds were considered but not given or refused? Why? @ -None Did you discuss the management of the patient with other professionals (professionals i.e. , PA, STORE LEADER, lab, RT, psych nurse, social sciences chair, building rental superintendent, teacher, loans officer, showcase trimmer)? Give summary @ -I spoke with Dr. Valencia and he wanted the patient placed in a sling and follow-up as needed Was smoking cessation discussed for >3mins.? @ -No Was critical care preformed (if so, how long)? @ -No Were there social determinants of health that impacted care today? How? (Homelessness, low income, unemployed, alcoholism, drug addiction, transportation, low edu. Level, literacy, decrease access to med. care, snf, rehab)? @ -No Was there de-escalation of care discussed even if they declined (Discuss DNR or withdrawal of care, Hospice)? DNR status @ -No What co-morbidities impacted this encounter? (DM, HTN, Smoking, COPD, CAD, Cancer, CVA, ARF, Chemo, Hep., AIDS, mental health diagnosis, sleep apnea, morbid obesity)? @ -None Was patient admitted / discharged? Hospital course, mention meds given and route, prescriptions, significant lab abnormalities, going to OR and other pertinent info. @ -Patient will be placed in a sling and will discharge home to follow-up with his orthopedics Undiagnosed new problem with uncertain prognosis? @ -No Drug Therapy requiring intensive monitoring for toxicity (Heparin, Nitro, Insulin, Cardizem)? @ -No Were any procedures done? @ -No Diagnosis/symptom? @ -Scapular fracture Acute, or Chronic, or Acute on Chronic? @ -Acute Uncomplicated (without systemic symptoms) or Complicated (systemic symptoms)? @ -Complicated Side effects of treatment? @ -No Exacerbation, Progression, or Severe Exacerbation? @ -No Poses a threat to life or bodily function? How? (Chest pain, [place], [place], pneumonia, PE, COPD, DKA, ARF, appy, cholecystitis, CVA, Diverticulitis, Homicidal, Suicidal, threat to staff... and all critical care pts) @ -No Diagnosis/symptom? @ -Fall Acute, or Chronic, or Acute on Chronic? @ -Acute Uncomplicated (without systemic symptoms) or Complicated (systemic symptoms)? @ -Complicated Side effects of treatment? @ -None Exacerbation, Progression, or Severe Exacerbation] @ -No Poses a threat to life or bodily function? @ -No Disposition Clinical Impression: Fall, Scapular fracture Disposition: HOME SELF-CARE Condition: Good Instructions (If sedation given, give patient instructions): Fall Prevention for Older Adults (ED) Is patient prescribed a controlled substance at d/c from ED?: No Referrals: Talat Baum MD [Primary Care Provider] - 1-2 days Pedro Valencia DO [Doctor of Osteopathic Medicine] - 1-2 days Time of Disposition: 16:46
[2025-04-14] MEDS: HYDROmorphone 0.5 MG/0.5 ML SYRINGE IM STA (13:29)
--- NOTE | 2025-04-14 13:33 | CT ---
EXAMINATION TYPE: CT brain cspine wo con CT DLP: 1500.8 mGycm, Automated exposure control for dose reduction was used. DATE OF EXAM: 04/14/2025 1:23 PM COMPARISON: CT brain 09/21/2017, 12/16/2016, PET CT 04/21/2024. CLINICAL INDICATION:Male, 79 years old with history of Trauma; Code Coag, fall on thinners., pain TECHNIQUE: Brain: Multiple axial CT images of the brain were obtained without IV contrast. Cspine: Axial CT images from the skull base to the inferior aspect of T2 we obtained without intraven ous contrast. Coronal and sagittal reformatted images were also reviewed. FINDINGS: Brain: Extra-axial spaces: No abnormal extra-axial fluid collections. Ventricular system: Within normal limits Cerebral parenchyma: Cerebral atrophy. No acute intraparenchymal hemorrhage or mass effect. The pacheco -white junction is well differentiated. Scattered hypoattenuating areas are seen within the periventr icular white matter. Nonspecific bilateral basal ganglia calcifications. Cerebellum: Unremarkable. Mass effect: No evidence of midline shift. Intracranial vasculature: Atherosclerotic calcifications of the intracranial vessels. Soft tissues: Normal. Calvarium/osseous structures: No depressed skull fracture. Paranasal sinuses and mastoid air cells: Clear. Visualized orbits: Bilateral aphakia Cervical spine: Fracture: None. Osseous structures: Multilevel degenerative disc disease changes with disc space narrowing and endpla te sclerosis. Incidental incomplete fusion of the posterior arch of C1. Multilevel facet arthropathy. Vertebral alignment: Within normal limits. Spinal canal/Neural Foramina: No evidence of significant spinal canal narrowing. Facet joint uncovert ebral joint arthropathy scattered throughout the cervical spine with varying degrees of neural forami nal stenosis. Neck soft tissues: Prevertebral soft tissues are within normal limits. Other: The airway is patent. The lung apices are clear. Bilateral carotid bulb calcifications. Thyroi d gland appears atrophic versus surgically absent. IMPRESSION: 1. No acute intracranial process. 2. Nonspecific white matter changes, likely secondary to chronic small vessel ischemic disease. 3. No evidence of cervical spine fracture. 4. Mild multilevel degenerative disc disease. [facility], , 04/14/2025 1:30 PM
--- NOTE | 2025-04-14 14:36 | XR ---
EXAMINATION TYPE: XR shoulder complete RT DATE OF EXAM: 04/14/2025 2:28 PM COMPARISON: None. CLINICAL INDICATION: Male, 79 years old with history of Trauma, Pain TECHNIQUE: XR shoulder complete RT view(s) obtained. FINDINGS: The humeral head articulates with the glenoid. The acromio-clavicular junction is normal. No acute fractures or dislocations are evident. A follow up study can be performed 7-10 days from acute trauma for continued pain. MRI can be perfor med if soft tissue evaluation would be of benefit. IMPRESSION: 1. No acute osseous right shoulder abnormality. [facility], , 04/14/2025 2:33 PM
--- NOTE | 2025-04-14 15:56 | XR ---
EXAMINATION TYPE: XR scapula RT DATE OF EXAM: 04/14/2025 3:39 PM COMPARISON: None. CLINICAL INDICATION: Male, 79 years old with history of Fall, pain TECHNIQUE: 2 view(s) obtained. FINDINGS: There is a fracture at the tip of the scapula. Fracture fragments are displaced anteriorly. No additional fractures are identified. IMPRESSION: 1. Fracture of the tip of the scapula. [facility], , 04/14/2025 3:53 PM
--- NOTE | 2025-04-14 15:58 | XR ---
EXAMINATION TYPE: XR ribs RT w pa chest xray DATE OF EXAM: 04/14/2025 3:39 PM COMPARISON: None. CLINICAL INDICATION: Male, 79 years old with history of Fall, pain TECHNIQUE: 2 view(s) obtained. Exam is supplemented with a frontal chest FINDINGS: No displaced fractures are evident. No pneumothorax is evident. Heart size is normal. Pulmonary vasculature is normal. No pneumothorax IMPRESSION: 1. No acute displaced right rib fractures [facility], , 04/14/2025 3:55 PM
[2025-04-14 17:14] VITALS: BP 142/62; PULSE 67; TEMP 98
== END 2025-04-14 17:14 | disposition home or self-care (01) ==
LOC: SUPCPDRO 12:45 → EC 12:45
DX: S42.101A Fracture of unspecified part of scapula, right shoulder, initial encounter for closed fracture (principal); Z91.040 Latex allergy status; Z91.048 Other nonmedicinal substance allergy status; Z79.01 Long term (current) use of anticoagulants; W18.2XXA Fall in (into) shower or empty bathtub, initial encounter
CPT/HCPCS: 71101; 73010; 73030; 72125; 70450; 99284; 96372; J1171